=== PATIENT | male | born 1950 | race Caucasian/White ===

== ENCOUNTER 2019-03-25 10:02 | Outpatient (CLI) | payer MEDICARE, OTHER ==
--- NOTE | 2019-03-25 11:02 | ULT ---
RENAL ULTRASOUND WITH DOPPLER EVALUATION: HISTORY: Chronic renal disease. FINDINGS: Real-time imaging of the right and left kidneys was performed. This showed normal-sized kidneys. Th e right kidney measured 11.4 and the left 11.3 cm in size. There are no signs of cyst, mass, or obst ruction. There is a slightly trabeculated appearance to the bladder with bladder diverticulum noted. DOPPLER EVALUATION WITH SPECTRAL ANALYSIS: Right renal artery velocity measurements are 104 cm and the left are 172. Aortic velocities are 121 cm/s. The resistive index on the right is 0.66 and on the left 0.68. IMPRESSION: 1. Normal size and appearance to both kidneys. 2. Mildly elevated velocities of the left renal artery, but resistive index are within normal range. 3. Distended bladder. Bladder volume was 666 cc. There is bladder diverticulum noted. POS: [facility]
== END 2019-03-25 10:03 | disposition home or self-care (01) ==
LOC: BICULT 10:02
PROVIDERS: ATTEND Internal Medicine Nephrology
DX: I12.9 Hypertensive chronic kidney disease with stage 1 through stage 4 chronic kidney disease, or unspecified chronic kidney disease (principal); N18.2 Chronic kidney disease, stage 2 (mild); N32.89 Other specified disorders of bladder; N32.3 Diverticulum of bladder
CPT/HCPCS: 76700; 76770

== ENCOUNTER 2019-04-09 | Inpatient (IN) | payer MEDICARE, OTHER ==
[2019-04-09 00:33] LABS: #Eosinphils 0.3 thou/uL (0.0-0.7); #Lymphocytes 1.3 thou/uL (1.20-3.40); #Monocytes 0.5 thou/uL (0.11-0.59); #Neutrophils 4.1 thou/uL (1.40-6.50); %Basophils 0.5 % (0.0-1.0); %Eosinophils 4.3 % (0.0-10.0); %Lymphocytes 21.2 % (21.0-51.0); %Monocytes 8.4 % (0.0-10.0); %Neutrophils 65.6 % (42.0-75.0); Hemoglobin 12.6 g/dL (14.0-18.0); Mean Corpuscular HGB CONC 33.3 g/dL (32.0-36.0); Mean Corpuscular Hemoglobin 30.1 pg (27.0-31.0); Mean Corpuscular Volume 90.5 fL (78.0-98.0); Mean Platelet Volume 6.6 fL (7.4-10.4); Platelet Count 208 thou/uL (130-400); RBC Distribution Width 12.8 % (11.5-14.5); Red Blood Cell (RBC) Count 4.19 mill/uL (4.70-6.10); White Blood Cell (WBC) Count 6.3 thou/uL (4.8-10.8)
[2019-04-09 01:02] LABS: ALT (SGPT) 23 U/L (8-55); AST (SGOT) 21 U/L (5-34); Albumin 4.3 g/dL (3.4-4.8); Alkaline Phosphatase 59 U/L (40-150); Anion Gap 14 mmol/L (10-20); BUN (Urea Nitrogen) 21 mg/dL (8.4-25.7); Bilirubin, Total 0.3 mg/dL (0.2-1.2); Calc. Creatinine Clearance 0 mL/min (70-130); Calcium 9.3 mg/dL (7.8-10.44); Carbon Dioxide 23 mmol/L (23-31); Chloride 101 mmol/L (98-107); Estimated GFR-MDRD 66; Globulin 2.8 g/dL (2.4-3.5); Glucose 242 mg/dL (80-115); Lipase 32 U/L (8-78); Potassium 3.9 mmol/L (3.5-5.1); Protein, Total 7.1 g/dL (5.8-8.1); Sodium 134 mmol/L (136-145)
[2019-04-09 01:22] LABS: CKMB 3.9 ng/mL (0-6.6)
[2019-04-09] MEDS ORDERED: Enoxaparin Sodium 80 MG/0.8 ML SYRINGE ONE (01:40)
[2019-04-09] MEDS ORDERED: Nitroglycerin 2% Ointment 1 INCH/1 GM Packet ONE (01:40)
[2019-04-09 02:59] VITALS: BMI 26.4
[2019-04-09] MEDS ORDERED: Ondansetron ODT 4 MG TAB SL PRN (03:01)
[2019-04-09] MEDS ORDERED: Ondansetron PF 4 MG/2 ML Vial IVP PRN (03:01)
[2019-04-09 04:54] LABS: Troponin I 2.468 ng/mL (< 0.028)
[2019-04-09] MEDS ORDERED: Simvastatin 40 MG TAB PO SCH (05:45)
[2019-04-09 07:08] LABS: Troponin I 4.835 ng/mL (< 0.028)
[2019-04-09] MEDS ORDERED: Nitroglycerin 2% Ointment 1 INCH/1 GM Packet TOP SCH (08:00)
--- NOTE | 2019-04-09 08:07 | RAD ---
EXAM: Portable chest PROVIDED CLINICAL HISTORY: Chest pain COMPARISON: None FINDINGS: Cardiac and mediastinal silhouette is within normal limits. No focal consolidation, pleural fluid or pneumothorax evident. Vascular calcification is noted. IMPRESSION: No evidence for an acute cardiopulmonary process.
[2019-04-09] MEDS ORDERED: HumaLOG 300 UNITS/3 ML VIAL SC PRN ×2 (08:21)
[2019-04-09] MEDS ORDERED: Dextrose 50% Abboject 50 ML SYRINGE SLOW IVP PRN (08:21)
[2019-04-09] MEDS ORDERED: Dextrose 5% in Water 1,000 ML IV PRN (08:21)
[2019-04-09] MEDS ORDERED: hydrALAZINE 20 MG/ML VIAL SLOW IVP PRN (08:22)
[2019-04-09 08:50] LABS: Cardiac Risk 8.4 (Less than 4.5)
[2019-04-09] MEDS ORDERED: Aspirin 325 MG TAB PO SCH (09:00)
[2019-04-09] MEDS ORDERED: Non-Formulary Item 1 EACH (Insulin Detemir [Levemir] 25 UNIT) SQ SCH (09:00)
[2019-04-09] MEDS: Insulin Glargine 25 UNITS in Pre-Filled Syringe 1 EACH SC SCH ×2 (09:24→21:24)
--- NOTE | 2019-04-09 18:53 | PDOC.EVN ---
Event Note - Event Note Event Note: Pt seen and examined. care discussed w Ms carol Richard ,CHAIN MAKER HAND. Agree w cureent care Pt symptom free. Had long discussion about possible outcomes including Cath , stenting,CABG. He is agreeable to any recommendation as will be provided by cardiology NAD CTA B/L RRR Cont ASA,statin,Lovenox BID. NPO after [place] cardiology recs requested HD stable
[2019-04-09] MEDS ORDERED: Atorvastatin Calcium 40 MG TAB PO SCH (21:00)
[2019-04-09] MEDS: Enoxaparin Sodium 80 MG/0.8 ML SYRINGE SC SCH (21:24)
[2019-04-09 21:28] LABS: Hemoglobin 12.5 g/dL (14.0-18.0); Platelet Count 210 thou/uL (130-400)
[2019-04-10] MEDS: Enoxaparin Sodium 80 MG/0.8 ML SYRINGE SC SCH (08:59)
[2019-04-10] MEDS: NIFEdipine XL 30 MG TAB PO SCH (08:59)
[2019-04-10] MEDS ORDERED: Communication Order-Pharmacy FS SCH (09:00)
[2019-04-10] MEDS ORDERED: Carvedilol 3.125 MG TAB PO SCH (09:15)
--- NOTE | 2019-04-10 10:36 | CON ---
DATE OF CONSULTATION: HISTORY OF PRESENT ILLNESS: Saulo Vega is a 68-year-old white male, who was admitted with non STEMI. I did see him for evaluation in July 2013. He was being considered for parathyroidectomy for hypercalcemia. Twice previously in [place], he had undergone chest CT for calcium score, which was very abnormal. However, he never had a physiologic test. He then underwent Lexiscan Cardiolite testing for preop evaluation, which revealed a fixed proximal to mid inferior wall defect as well as ischemia in the distal inferior wall. This was present even on prone scan. Also, ejection fraction on echocardiogram at that time was 50% to 55% with mild mitral regurgitation, mild tricuspid regurgitation, and mild pulmonic insufficiency. It was recommended he undergo cardiac catheterization. He opted to see his 's dehydrator operator at [facility] in [place]. Apparently, he underwent catheterization there in 2012. He states that he was told that he had some blockages, but nothing further needed to be done. He was on atorvastatin for a period of time. However, it is unclear why he stopped taking that. He may have had some muscle pain, but he basically does not recall, he just stopped taking it. He also underwent repeat catheterization in 2016 and was told that he had some fairly significant disease. However, these locations were not ideal for stent placement and that his problems were not significant enough to undergo bypass. He did well until April 04, when he was digging up a tree stump and had some chest pressure that lasted for several minutes, associated with some shortness of breath. On April 08, he was carrying 20 pounds walking uphill and had the same type of chest pressure that was relieved with rest in 2 or 3 minutes. Then, later when he was driving home, he had again recurrence of the same discomfort. He went home, took three baby aspirins, but continued to have pain. Ultimately, 4 to 5 hours later, he called paramedics, and when he was given one sublingual nitroglycerin , his pain essentially resolved. Total duration of the pain was 6 or 7 hours. He has been pain-free since that time. PAST MEDICAL HISTORY: Diabetes, hypercholesterolemia, and hypertension. MEDICATIONS: 1. Nifedipine 30 mg daily. 2. Flomax 0.4 mg daily. 3. He does not take an aspirin routinely. He does not take a statin. ALLERGIES: 1. AMOXICILLIN. 2. SULFA. 3. LISINOPRIL. 4. METOPROLOL. HE STATES HE HAS TAKEN AMOXICILLIN SINCE WITHOUT PROBLEMS. HE WOULD HAVE FACIAL EDEMA WHEN HE WAS STARTED ON ANTIBIOTIC AND TAKING LISINOPRIL OR METOPROLOL AND SO HE HAS AVOIDED ALL OF THEM SINCE THAT TIME. SOCIAL HISTORY: He does not smoke. He has occasional beers. FAMILY HISTORY: Father had myocardial infarction. REVIEW OF SYSTEMS: A 12-point review of systems is otherwise unremarkable. PHYSICAL EXAMINATION: VITAL SIGNS: Blood pressure 187/87, pulse of 60. HEENT: PERRL. NECK: Supple. CHEST: Clear. CARDIAC: S1 and S2 normal without any S3, S4, or murmurs. Carotid upstrokes normal without bruits. Dorsalis pedis and posterior tibial pulses are intact. ABDOMEN: Normal bowel sounds without tenderness or organomegaly. EXTREMITIES: Revealed no clubbing, cyanosis, or edema. NEUROLOGICAL: Grossly intact. SKIN: Warm and dry. LABORATORY DATA: EKG reveals normal sinus rhythm with right bundle-branch block. Hemoglobin 12.6, hematocrit 37.9, white count 6300, and platelets 208,000. Sodium 134, potassium 3.6, chloride 101, carbon dioxide 23, BUN 21, creatinine 1.10, and glucose 242. BNP 53.2. Troponin I of 4.835. Cholesterol 176, triglycerides 334, LDL 88. TSH is normal. IMPRESSION: 1. Lgu-[id number] elevation myocardial infarction. 2. Known coronary artery disease from previous catheterizations. 3. Hypertension, poorly controlled. 4. Diabetes, poorly controlled. 5. Hypercholesterolemia, untreated. 6. Positive family history. 7. History of hyperparathyroidism in the past, however, apparently never required parathyroidectomy, and his calcium level at this time is 9.3. RECOMMENDATIONS: Mr. Vega will be placed on a statin. Low-dose carvedilol will be started for better blood pressure control. It is recommended he undergo cardiac catheterization. Risks of this were discussed with the patient and his including , myocardial infarction, stroke, transfusion, limb loss, renal loss, allergic reaction, vascular injury, requiring operation, etc. Risks of stent placement discussed including , myocardial infarction, emergent CABG, restenosis, stent thrombosis, vessel perforation, etc. He has no history of GI bleeding or stroke. He has no upcoming surgery except possible cataract and overall it is recommended that a drug-eluting stent be placed if required. Job ID: [id number] MTDD
[2019-04-10] MEDS: Insulin Glargine 25 UNITS in Pre-Filled Syringe 1 EACH SC SCH ×2 (13:12→20:52)
--- NOTE | 2019-04-10 13:16 | PDOC.PN ---
- Subjective Encounter Start Date: 04/10/19 Encounter Start Time: 11:25 Subjective: no chest pain or palp -: is amb in hallway - Objective MAR Reviewed: Yes Vital Signs & Weight: Vital Signs (12 hours) Temp Pulse Resp BP BP Pulse Ox 04/10/19 08:59 60 04/10/19 07:50 98.4 F 60 18 187/87 H 95 04/10/19 04:00 98.4 F 63 16 160/83 H 97 Weight Weight 114 lb I&O: 04/09/19 04/10/19 04/11/19 06:59 06:59 06:59 Intake Total 0 300 Output Total 750 Balance -750 300 Result Diagrams: 04/09/19 21:21 04/09/19 21:21 Additional Labs: Accuchecks 04/10/19 04/10/19 04/10/19 10:40 06:06 05:27 POC Glucose 160 H 87 67 L 04/09/19 04/09/19 20:19 16:52 POC Glucose 149 H 90 Phys Exam - Physical Examination HEENT: PERRLA, moist MMs Neck: no JVD, supple Respiratory: no wheezing, no rales Cardiovascular: RRR, no significant murmur Gastrointestinal: soft, non-tender, positive bowel sounds Musculoskeletal: no edema, pulses present Neurological: non-focal, moves all 4 limbs Psychiatric: normal affect, A&O x 3 Dx/Plan (1) NSTEMI (non-ST elevated myocardial infarction) Code(s): I21.4 - NON-ST ELEVATION (NSTEMI) MYOCARDIAL INFARCTION Status: Acute (2) CAD (coronary artery disease) Code(s): I25.10 - ATHSCL HEART DISEASE OF [place] CORONARY ARTERY W/O ANG PCTRS Status: Chronic Qualifiers: Coronary Disease-Associated Artery/Lesion type: [place] artery [place] vs. transplanted heart: [place] heart Associated angina: without angina Qualified Code(s): I25.10 - Atherosclerotic heart disease of [place] coronary artery without angina pectoris (3) HTN (hypertension) Code(s): I10 - ESSENTIAL (PRIMARY) HYPERTENSION Status: Chronic Qualifiers: Hypertension type: essential hypertension Qualified Code(s): I10 - Essential (primary) hypertension (4) Dyslipidemia Code(s): E78.5 - HYPERLIPIDEMIA, UNSPECIFIED Status: Chronic (5) BPH (benign prostatic hyperplasia) Code(s): N40.0 - BENIGN PROSTATIC HYPERPLASIA WITHOUT LOWER URINRY TRACT SYMP Status: Chronic Qualifiers: Lower urinary tract symptom presence: symptoms present (6) DM type 2 (diabetes mellitus, type 2) Status: Chronic Qualifiers: Diabetes mellitus mcfp insulin use: with truck terminal manager use Diabetes mellitus complication status: with other specified complication Qualified Code (s): E11.69 - Type 2 diabetes mellitus with other specified complication; 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 Review of Systems - Medications/Allergies Allergies/Adverse Reactions: Allergies Allergy/AdvReac Type Severity Reaction Status Date / Time amoxicillin Allergy Severe FACIAL Verified 08/22/14 09:39 SWELLING amlodipine Allergy angioedema Verified 04/09/19 03:29 lisinopril Allergy angioedema Verified 04/09/19 03:29 metoprolol Allergy Verified 04/09/19 03:29 Sulfa (Sulfonamide Allergy Verified 04/09/19 03:29 Antibiotics) Medications: Current Medications Carvedilol (Coreg) 3.125 mg PO BID-[facility] Dextrose/Water (Dextrose 50%) 25 gm SLOW IVP PRN PRN PRN Reason: Hypoglycemia Enoxaparin Sodium (Lovenox) 80 mg SC 0900,2100 [facility] Stop: 04/10/19 23:00 Last Admin: 04/10/19 08:59 Dose: 80 mg Glucagon (Glucagon) 1 mg IM PRN PRN PRN Reason: Hypoglycemia Hydralazine HCl (Apresoline) 10 mg SLOW IVP Q4H PRN PRN Reason: SBP > 180 and HR < 70 Dextrose/Water (D5w) 1,000 mls @ 0 mls/hr IV .Q0M PRN PRN Reason: Hypoglycemia Insulin Glargine 25 units/ (Miscellaneous Medication) 0.25 mls @ 0 mls/hr SC BID [facility] Stop: 04/11/19 00:01 Last Admin: 04/09/19 21:24 Dose: 0.25 mls Sodium Chloride (Normal Saline 0.9%) 1,000 mls @ 100 mls/hr IV .Q10H [facility] Insulin Human Lispro (Humalog) 0 units SC .MILD SLIDING SCALE PRN PRN Reason: Mild Correctional Scale Stop: 04/11/19 00:01 Insulin Human Lispro (Humalog) 0 units SC .BEDTIME SLIDING SC PRN PRN Reason: Bedtime Correctional Scale Stop: 04/11/19 00:01 Miscellaneous Information (Communication Order-Pharmacy) 0 each FS ONE [facility]LENE Stop: 04/11/19 12:00 Nifedipine (Procardia Xl) 30 mg PO DAILY [facility] Last Admin: 04/10/19 08:59 Dose: 30 mg Rosuvastatin Calcium (Crestor) 10 mg PO CHARLENE
--- NOTE | 2019-04-10 15:55 | HP ---
PRIMARY CARE PHYSICIAN: Reji Low MD CHIEF COMPLAINT: Chest pain. HISTORY OF PRESENT ILLNESS: Mr. Vega is a 68-year-old male, who reported to the emergency room last night after experiencing some left-sided chest pain while he was carrying something heavy up a hill. He reports that it is the sharp nature of the chest pain, a little bit better after he sat down, drank a beer, tried to relax, took an aspirin, but states the pain persisted. By the time his got home at 10 o'clock, he asked to be taken to the emergency room. EMS was called. By then, he had taken another aspirin and had another beer, trying to cool off. He does have a past medical history of coronary artery disease, hypertension, and diabetes type 2. The patient was given some nitroglycerin by EMS and reports that his pain after that improved. He reports the pain is substernal. He reports after that sharp chest pain resolved, reports that it was pressure-like, exacerbated by walking. He denied any diaphoresis or any nausea/vomiting. Does report some mild shortness of breath when the pain was at its worst. Initial workup in the ER showed the EKG with normal sinus rhythm, beats per minute 67, complete right bundle-branch block, ST segments normal, T-waves normal, LA interval at 186. He was given aspirin, Nitro-Bid transdermal, 500 mL of fluid, and 1 mg/kg Lovenox. His initial troponin was in the indeterminate range at 0.091, second troponin at 0400 hours this morning was 2.468, and third troponin at 0629 hours was 4.835. Triglycerides 334, total cholesterol 176. TSH is 1.34. Initial sodium 134 and glucose was 242. Other lab values were unremarkable. Hemoglobin was 12.6, hematocrit 37.9,. The patient was subsequently admitted to the telemetry unit for further management. REVIEW OF SYSTEMS: The patient reports chest pain, substernal. He reports some shortness of breath. He denied any diaphoresis or palpitations. He denied any dizziness. He reports that he had a similar episode of chest pain 3 days ago, but it resolved without any interventions, so he discounted it until he had the subsequent chest pain that brought him to the emergency room. All other systems are reviewed and are negative unless mentioned in the HPI. PAST MEDICAL HISTORY: Diabetes, type 2, insulin dependent; hyperlipidemia; high cholesterol; high triglycerides; hypertension. PAST SURGICAL HISTORY: The patient reports he has had 2 heart catheterizations , one in 2008, one in 2012. He denies any stent placement. He reports these both were done at [facility] in [place]. PSYCHIATRIC HISTORY: None. SOCIAL HISTORY: Denies any alcohol use or drug use. The patient has no smoking history. FAMILY HISTORY: The patient does report family history of both coronary artery disease and hypertension. KNOWN ALLERGIES: Amoxicillin and sulfa. CURRENT MEDICATIONS: 1. Cardura 1 mg p.o. daily. 2. Humalog 10 units subcu a.c. and at bedtime. 3. Levemir subcu b.i.d. 4. Procardia XL 30 mg p.o. daily. PHYSICAL EXAMINATION: VITAL SIGNS: Blood pressure is 138/67, pulse is 64, respirations are 15, temperature is 98.2, and O2 sats are 96% on room air. CONSTITUTIONAL: The patient appears in no distress, is nontoxic, is alert and oriented to person, place and time. HEENT: Head is atraumatic and normocephalic. Eyes; eyelids are normal to inspection, pupils are equally round and reactive to light. ENT, mucous membranes are moist. Mouth exam is normal. NECK: Normal range of motion. Trachea is midline. RESPIRATORY/CHEST: Breath sounds are clear. CARDIOVASCULAR: S1 and S2. HEART: Heart sounds are normal. Regular rate and rhythm. ABDOMEN: Nontender. Bowel sounds are heard. BACK: Normal inspection, normal range of motion. EXTREMITIES: Upper extremity inspection, normal range of motion, radial pulses are normal. Lower extremity, normal inspection, normal range of motion. Pedal pulses normal. NEUROLOGIC: The patient is oriented to person, place, and time. Speech is normal. PLAN/ASSESSMENT: 1. Chest pain with troponins elevated, likely eti-QG-gbzsacu elevation myocardial infarction. Cardiology has been consulted. Lovenox 1 mg/kg has been started. Aspirin 325 mg is given in the emergency room. Lipids have been checked. The patient is on a statin. 2. Diabetes, type 2. Home insulin has been restarted. We will add a sliding scale for coverage while hospitalized, a.c. and at bedtime Accu-Cheks. 3. Hypertension. Home medications have been restarted. We will trend p.r.n. medications needed as for coverage. 4. Hyperlipidemia. Statin has been restarted. 5. Gastrointestinal prophylaxis has been started. Lovenox has also been started. Case has been discussed with Dr. Buckner, who agrees with plan. Hospital course is dependent on clinical findings. Job ID: [id number] MTDD
[2019-04-10] MEDS: Carvedilol 3.125 MG TAB PO SCH (17:37)
[2019-04-10] MEDS: Rosuvastatin 10 MG TAB PO SCH (20:51)
[2019-04-10] MEDS ORDERED: Enoxaparin Sodium 60 MG/0.6 ML SYRINGE SC SCH (21:00)
[2019-04-11] MEDS: NIFEdipine XL 30 MG TAB PO SCH (05:37)
[2019-04-11] MEDS: Carvedilol 3.125 MG TAB PO SCH ×2 (05:40→16:37)
[2019-04-11] MEDS ORDERED: Sodium Chloride 0.9% 1,000 ML IV SCH ×2 (06:00→12:15)
[2019-04-11 07:51] LABS: Anion Gap 12 mmol/L (10-20); BUN (Urea Nitrogen) 16 mg/dL (8.4-25.7); Calc. Creatinine Clearance 67 mL/min (70-130); Calcium 9.6 mg/dL (7.8-10.44); Carbon Dioxide 25 mmol/L (23-31); Chloride 107 mmol/L (98-107); Estimated GFR-MDRD 65; Glucose 95 mg/dL (80-115); Potassium 3.9 mmol/L (3.5-5.1); Sodium 140 mmol/L (136-145)
[2019-04-11] MEDS ORDERED: Protamine Sulfate 50 MG/5 ML VIAL ONE (10:44)
[2019-04-11] MEDS ORDERED: Heparin 10,000 UNITS/1 ML VIAL ONE (10:44)
[2019-04-11] MEDS ORDERED: Lidocaine 1% (PF) 30 ML VIAL ONE (10:45)
[2019-04-11] MEDS ORDERED: Iopamidol 370 76% 50 ML VIAL FS ONE (11:14)
[2019-04-11] MEDS ORDERED: Iopamidol 370 76% 100 ML VIAL ONE (11:14)
[2019-04-11] MEDS ORDERED: Midazolam HCl 2 mg/2 ml Vial ONE (11:33)
[2019-04-11] MEDS ORDERED: Fentanyl 100 MCG/2 ML VIAL ONE (11:34)
[2019-04-11] MEDS ORDERED: Sodium Chloride 0.9% 200 ML IV PRN (12:14)
[2019-04-11] MEDS ORDERED: Acetaminophen/Codeine 30-300mg Tablet PO PRN ×2 (12:14)
[2019-04-11] MEDS ORDERED: Nitroglycerin 0.4 MG TAB (25 Tab Bottle) SL PRN (12:14)
--- NOTE | 2019-04-11 12:36 | PDOC.PN ---
- Subjective Encounter Start Date: 04/11/19 Encounter Start Time: 08:45 Subjective: no sob or chest pain -: at bedside - Objective MAR Reviewed: Yes Vital Signs & Weight: Vital Signs (12 hours) Temp Pulse Resp BP Pulse Ox 04/11/19 08:00 97.9 F 53 L 18 153/72 H 98 04/11/19 05:37 74 04/11/19 03:45 98.1 F 56 L 18 151/72 H 97 Weight Weight 170 lb I&O: 04/10/19 04/11/19 04/12/19 06:59 06:59 06:59 Intake Total 300 1420 10 Output Total 1000 Balance 300 420 10 Result Diagrams: 04/09/19 21:21 04/11/19 07:24 Additional Labs: Accuchecks 04/11/19 04/11/19 04/10/19 11:01 05:42 20:27 POC Glucose 100 117 H 118 H 04/10/19 16:36 POC Glucose 125 H Phys Exam - Physical Examination HEENT: PERRLA, moist MMs Neck: no JVD, supple Respiratory: no wheezing, no rales Cardiovascular: RRR, no significant murmur Gastrointestinal: soft, non-tender, positive bowel sounds Musculoskeletal: no edema, pulses present Neurological: non-focal, moves all 4 limbs Psychiatric: normal affect, A&O x 3 Dx/Plan (1) NSTEMI (non-ST elevated myocardial infarction) Code(s): I21.4 - NON-ST ELEVATION (NSTEMI) MYOCARDIAL INFARCTION Status: Acute (2) CAD (coronary artery disease) Code(s): I25.10 - ATHSCL HEART DISEASE OF [place] CORONARY ARTERY W/O ANG PCTRS Status: Chronic Qualifiers: Coronary Disease-Associated Artery/Lesion type: [place] artery [place] vs. transplanted heart: [place] heart Associated angina: without angina Qualified Code(s): I25.10 - Atherosclerotic heart disease of [place] coronary artery without angina pectoris (3) HTN (hypertension) Code(s): I10 - ESSENTIAL (PRIMARY) HYPERTENSION Status: Chronic Qualifiers: Hypertension type: essential hypertension Qualified Code(s): I10 - Essential (primary) hypertension (4) Dyslipidemia Code(s): E78.5 - HYPERLIPIDEMIA, UNSPECIFIED Status: Chronic (5) BPH (benign prostatic hyperplasia) Code(s): N40.0 - BENIGN PROSTATIC HYPERPLASIA WITHOUT LOWER URINRY TRACT SYMP Status: Chronic Qualifiers: Lower urinary tract symptom presence: symptoms present (6) DM type 2 (diabetes mellitus, type 2) Status: Chronic Qualifiers: 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 Review of Systems - Medications/Allergies Allergies/Adverse Reactions: Allergies Allergy/AdvReac Type Severity Reaction Status Date / Time amoxicillin Allergy Severe FACIAL Verified 08/22/14 09:39 SWELLING amlodipine Allergy angioedema Verified 04/09/19 03:29 lisinopril Allergy angioedema Verified 04/09/19 03:29 metoprolol Allergy Verified 04/09/19 03:29 Sulfa (Sulfonamide Allergy Verified 04/09/19 03:29 Antibiotics) Medications: Current Medications Acetaminophen/Codeine Phosphate (Tylenol #3) 1 tab PO Q4H PRN PRN Reason: Mild Pain (1-3) Acetaminophen/Codeine Phosphate (Tylenol #3) 2 tab PO Q4H PRN PRN Reason: Moderate Pain (4-6) Carvedilol (Coreg) 3.125 mg PO BID-[facility] Last Admin: 04/11/19 05:40 Dose: 3.125 mg Dextrose/Water (Dextrose 50%) 25 gm SLOW IVP PRN PRN PRN Reason: Hypoglycemia Glucagon (Glucagon) 1 mg IM PRN PRN PRN Reason: Hypoglycemia Hydralazine HCl (Apresoline) 10 mg SLOW IVP Q4H PRN PRN Reason: SBP > 180 and HR < 70 Dextrose/Water (D5w) 1,000 mls @ 0 mls/hr IV .Q0M PRN PRN Reason: Hypoglycemia Sodium Chloride (Normal Saline 0.9%) 200 mls @ 0 mls/hr IV ONE PRN PRN Reason: SBP < 90 Stop: 04/11/19 14:14 Sodium Chloride (Normal Saline 0.9%) 1,000 mls @ 125 mls/hr IV .Q8H [facility] Stop: 04/11/19 18:00 Nifedipine (Procardia Xl) 30 mg PO DAILY [facility] Last Admin: 04/11/19 05:37 Dose: 30 mg Nitroglycerin (Nitrostat) 0.4 mg SL Q5MIN PRN PRN Reason: Chest Pain Rosuvastatin Calcium (Crestor) 10 mg PO HS [facility] Last Admin: 04/10/19 20:51 Dose: 10 mg
[2019-04-11] MEDS ORDERED: Communication Order-Pharmacy FS ONE (20:59)
[2019-04-11] MEDS: Rosuvastatin 10 MG TAB PO SCH (21:19)
[2019-04-11 21:33] LABS: Platelet Count 221 thou/uL (130-400)
--- NOTE | 2019-04-12 01:00 | CON ---
DATE OF CONSULTATION: HISTORY OF PRESENT ILLNESS: This is a 68-year-old gentleman, who experienced chest tightness about a week ago when trying to dig up some dirt around a stump. He had tried to dig again after resolution of the symptoms and they recurred. He then did not have any recurrence until Thursday, 3 nights ago when he was exerting himself again and experienced chest discomfort. He was brought to the emergency room, where nitroglycerin relieved the pain and has not recurred, I do not see a troponin bump. The patient had been followed by Dr. Yeager for coronary artery disease and had a heart catheterization done at [facility] in the past without any intervention being done. He has cardiovascular risk factors of hypertension, insulin-dependent diabetes mellitus for the past 15 years, elevated lipid levels. He also has a history of hyperparathyroidism, neurogenic bladder, which requires self catheterizations at home. He also has a positive family history with his father having an IA in his 20s. Cardiac catheterization demonstrated a high-grade proximal LAD lesion, 40% left main mild, and obtuse marginal with a significant stenosis in its main branch with a smaller proximal branch having significant disease, but not bypassable. Distal circumflex had a significant lesion and appeared to be able to be grafted and then his right coronary had a high-grade lesion and a PDA that appeared to be bypassable. Left ventricular systolic function is normal. Cardiac echo showed normal left ventricular systolic function. PAST SURGICAL HISTORY: Negative. SOCIAL HISTORY: He is a nonsmoker. 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 He is a nonsmoker. MEDICATIONS: Prior to admission included: 1. Nifedipine 30 a day. 2. Humalog 10 a.c. and at bedtime. 3. Levemir 25 b.i.d. 4. Cardura 1 mg a day. ALLERGIES: HE HAS MULTIPLE ADVERSE MEDICATION REACTIONS INCLUDING TO METOPROLOL, LISINOPRIL, AMLODIPINE, AMOXICILLIN, AND SULFA. PHYSICAL EXAMINATION: VITAL SIGNS: Height 5 feet 9 inches, weight 170. NECK: No carotid bruits. LUNGS: Clear to auscultation. CARDIAC: Regular rate and rhythm. No murmurs. ABDOMEN: Slightly obese, nontender. No organomegaly or aneurysm. EXTREMITIES: He has palpable femoral and dorsalis pedis, posterior tibial pulses bilaterally as well as popliteal pulses. He has a good left radial pulse with a satisfactory Chad's test. He has no peripheral edema, although does admit to some swelling on occasion. 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 No dyspepsia or upper GI symptoms. No diarrhea or constipation. He does have difficulty emptying his bladder for which he does self-catheterizations and is followed by a urologist at the [facility]. He reports some peripheral edema in his calves. PLAN: At this time is for coronary bypass grafting to the LAD, OM, distal circ and PDA and informed consent has been obtained. Job ID: [id number]
[2019-04-12 06:41] LABS: Anion Gap 10 mmol/L (10-20); BUN (Urea Nitrogen) 15 mg/dL (8.4-25.7); Calc. Creatinine Clearance 70 mL/min (70-130); Calcium 9.7 mg/dL (7.8-10.44); Carbon Dioxide 24 mmol/L (23-31); Chloride 105 mmol/L (98-107); Estimated GFR-MDRD 65; Glucose 167 mg/dL (80-115); Potassium 3.8 mmol/L (3.5-5.1); Sodium 135 mmol/L (136-145)
[2019-04-12] MEDS: Carvedilol 3.125 MG TAB PO SCH (08:44)
--- NOTE | 2019-04-12 11:54 | PDOC.PN ---
- Subjective Encounter Start Date: 04/12/19 Encounter Start Time: 10:30 Subjective: is watching cabg video with -: no chest pain or palp - Objective MAR Reviewed: Yes Vital Signs & Weight: Vital Signs (12 hours) Temp Pulse Resp BP BP Pulse Ox 04/12/19 08:00 97.7 F 65 14 120/66 98 04/12/19 03:46 98.6 F 61 20 149/72 H 96 04/12/19 00:00 98.8 F 71 20 129/61 95 Weight Weight 178 lb 3.2 oz I&O: 04/11/19 04/12/19 04/13/19 06:59 06:59 06:59 Intake Total 1420 3230 Output Total 1000 1202 Balance 420 2027 Result Diagrams: 04/11/19 21:27 04/12/19 05:48 Additional Labs: Accuchecks 04/12/19 04/12/19 04/11/19 11:05 05:41 20:22 POC Glucose 240 H 179 H 154 H 04/11/19 16:26 POC Glucose 136 H Phys Exam - Physical Examination HEENT: PERRLA, moist MMs Neck: no JVD, supple Respiratory: no wheezing, no rales Cardiovascular: RRR, no significant murmur Gastrointestinal: soft, no distention, positive bowel sounds Musculoskeletal: no edema, pulses present Neurological: non-focal, moves all 4 limbs Psychiatric: normal affect, A&O x 3 Dx/Plan (1) NSTEMI (non-ST elevated myocardial infarction) Code(s): I21.4 - NON-ST ELEVATION (NSTEMI) MYOCARDIAL INFARCTION Status: Acute (2) CAD (coronary artery disease) Code(s): I25.10 - ATHSCL HEART DISEASE OF [place] CORONARY ARTERY W/O ANG PCTRS Status: Chronic Qualifiers: Coronary Disease-Associated Artery/Lesion type: [place] artery [place] vs. transplanted heart: [place] heart Associated angina: without angina Qualified Code(s): I25.10 - Atherosclerotic heart disease of [place] coronary artery without angina pectoris (3) HTN (hypertension) Code(s): I10 - ESSENTIAL (PRIMARY) HYPERTENSION Status: Chronic Qualifiers: Hypertension type: essential hypertension Qualified Code(s): I10 - Essential (primary) hypertension (4) Dyslipidemia Code(s): E78.5 - HYPERLIPIDEMIA, UNSPECIFIED Status: Chronic (5) BPH (benign prostatic hyperplasia) Code(s): N40.0 - BENIGN PROSTATIC HYPERPLASIA WITHOUT LOWER URINRY TRACT SYMP Status: Chronic Qualifiers: Lower urinary tract symptom presence: symptoms present (6) DM type 2 (diabetes mellitus, type 2) Status: Chronic Qualifiers: Diabetes mellitus director of corporate sponsorships insulin use: with chcf use Diabetes mellitus complication status: with other specified complication Qualified Code (s): E11.69 - Type 2 diabetes mellitus with other specified complication; Z79.4 - correction (current) use of insulin - Plan for cabg in am, has evaluated him -: continue asp, crestor, procardia, lantus -: hemostable -: is amb in [place] * . Review of Systems - Medications/Allergies Allergies/Adverse Reactions: Allergies Allergy/AdvReac Type Severity Reaction Status Date / Time amoxicillin Allergy Severe FACIAL Verified 08/22/14 09:39 SWELLING amlodipine Allergy angioedema Verified 04/09/19 03:29 lisinopril Allergy angioedema Verified 04/09/19 03:29 metoprolol Allergy Verified 04/09/19 03:29 Sulfa (Sulfonamide Allergy Verified 04/09/19 03:29 Antibiotics) Medications: Current Medications Carvedilol (Coreg) 3.125 mg PO BID-[facility] Stop: 04/12/19 12:00 Last Admin: 04/12/19 08:44 Dose: 3.125 mg
[2019-04-12] MEDS ORDERED: Dextrose 5% in Water 1,000 ML IV PRN (19:11)
[2019-04-12] MEDS ORDERED: Dextrose 50% Abboject 50 ML SYRINGE SLOW IVP PRN (19:13)
[2019-04-12] MEDS ORDERED: hydrALAZINE 20 MG/ML VIAL SLOW IVP PRN (19:13)
[2019-04-12] MEDS ORDERED: Acetaminophen/Codeine 30-300mg Tablet PO PRN ×2 (19:14)
[2019-04-12] MEDS ORDERED: Communication Order-Pharmacy FS SCH (19:15)
[2019-04-12] MEDS ORDERED: Carvedilol 3.125 MG TAB PO SCH (19:30)
[2019-04-12] MEDS ORDERED: Rosuvastatin 10 MG TAB PO SCH (21:00)
[2019-04-13] MEDS ORDERED: CEFAZOLIN 2 GM in Premix Bag 1 BAG IVPB SCH (02:30)
[2019-04-13] MEDS ORDERED: Midazolam HCl 5 mg/5 ml Vial ONE (06:28)
[2019-04-13] MEDS ORDERED: Fentanyl 250 MCG/5 ML VIAL ONE (06:28)
[2019-04-13] MEDS ORDERED: Albumin 5% 500 ML ONE (06:29)
[2019-04-13] MEDS ORDERED: Phenylephrine HCL 10 MG/ML VIAL ONE (06:36)
[2019-04-13] MEDS ORDERED: Heparin 10,000 UNITS/1 ML VIAL 30,000 UNITS in Sodium Chloride 0.9% 1,000 ML FS SCH (06:45)
[2019-04-13] MEDS ORDERED: Insulin Regular 300 UNITS/3 ML VIAL ONE (07:16)
[2019-04-13] MEDS ORDERED: Clindamycin/D5W 900 mg/50 ml Premix Bag ONE (07:55)
[2019-04-13] MEDS ORDERED: Carvedilol 3.125 MG TAB PO SCH (08:00)
[2019-04-13 11:16] LABS: Actual Bicarbonate (HCO3a) 19.4 mEq/L (22-28); CO2 Tension 29.9 mmHg (35.0-45.0); Calcium, Ionized 1.18 mmol/L (1.12-1.30); Carboxyhemoglobin (COHb) 0.6 gm% (0.0-3.0); Hemoglobin (Hb) 10.3 g/dL (14.0-18.0); O2 Tension (PaO2) 153.2 mmHg (> 70.0); Potassium - ABG Lab 3.86 mmol/L (3.70-5.30); Puncture Site ALINE; pH, Arterial 7.43 (7.35-7.45)
[2019-04-13 11:17] LABS: ALV-art Gradient 237.225 (0-20)
--- NOTE | 2019-04-13 11:28 | OP ---
DATE OF PROCEDURE: 04/13/2019 PREOPERATIVE DIAGNOSES: Coronary artery disease, status post unstable angina. PROCEDURES PERFORMED: Coronary artery bypass graft x4, good quality conduit with a left internal mammary artery to a 1.5 mm left anterior descending, saphenous vein to a 1.25 to 1.5 OM1 distally, saphenous vein to a 1.5 mm distal PDL, and saphenous vein graft to a 1.5 mm distal PDA. CORPORATE REAL ESTATE MANAGER: Korey. TRANSFUSION: None. DESCRIPTION OF PROCEDURE: After adequate anesthesia had been obtained, the patient was prepped and draped. Dr. Nair did an endovascular vein harvest of the left greater saphenous vein while I performed a median sternotomy entering the right pleura distally, which was closed later over a drain. Left internal mammary artery was harvested and was very nice quality vessel. It was passed posterior to the thymus gland through a hole in the pericardium. Following aortic and right atrial cannulation, the patient was placed on cardiopulmonary bypass. The aorta was quite close to the sternum posteriorly and at the end of the case, the saphenous vein grafts were fairly adjacent to the sternal edges. After inspection of the graftable vessels, the aorta was crossclamped and a liter of cold blood cardioplegia given through the aortic root and the 4 distal anastomosis were completed. Cross-clamp was replaced with a partial occluding clamp and two venous grafts were placed on the aortic root and marked with rings. Following this, the partial occluding clamp was removed and the PDA vein graft was attached in an end-to-side fashion to the posterolateral vein graft at the acute margin of the heart. Following this, the patient was weaned from cardiopulmonary bypass. Cannula was removed. Protamine was given systemically and the aortic cannulation site secured with a 4-0 Prolene suture. Mediastinal and right pleural drains were placed following which the sternum was reapproximated with #7 interrupted wire using vancomycin paste on the sternal edges, platelet rich blood and platelet poor plasma. As mentioned, the vein grafts on the aorta were quite close to the posterior sternal table, which would make reentry concerning and additionally, the target vessels were probably suboptimal for regrafting in the future. Job ID: [id number]
[2019-04-13] MEDS ORDERED: Bisacodyl 10 MG SUPP PR PRN (11:33)
[2019-04-13] MEDS ORDERED: Guaifenesin DM 100-10/5 ML UDCUP PO PRN (11:33)
[2019-04-13] MEDS ORDERED: Mag-Al 1200 mg/1200 mg/30 ML UDCUP PO PRN (11:33)
[2019-04-13] MEDS ORDERED: HYDROcodone/Acetaminophen 5/325 mg Tablet PO PRN ×2 (11:33)
[2019-04-13] MEDS ORDERED: Magnesium 2 GM/50 ML 2 GM in Premix Bag 1 BAG IVPB SCH (11:33)
[2019-04-13] MEDS ORDERED: Hetastarch 6% 500 ML 500 ML IVPB PRN (11:33)
[2019-04-13] MEDS ORDERED: Bisacodyl 5 MG TAB PO PRN (11:33)
[2019-04-13] MEDS ORDERED: Fentanyl 100 MCG/2 ML VIAL SLOW IVP PRN ×2 (11:33)
[2019-04-13] MEDS ORDERED: Nitroglycerin 50 MG/250 ML BOT 250 ML IVPB PRN (11:33)
[2019-04-13] MEDS ORDERED: Acetaminophen 325 MG TAB PO PRN (11:33)
[2019-04-13] MEDS ORDERED: Norepinephrine 8 MG in Sodium Chloride 0.9% 250 ML 242 ML IVPB PRN (11:33)
[2019-04-13] MEDS ORDERED: Promethazine HCl 25 MG/ML VIAL IM PRN (11:33)
[2019-04-13] MEDS ORDERED: DOPamine 400 MG/D5W 250 ML 250 ML IVPB PRN (11:33)
[2019-04-13] MEDS ORDERED: Post-Op Insulin Drip Protocol IVPB ONE (11:33)
[2019-04-13] MEDS ORDERED: hydrALAZINE 20 MG/ML VIAL SLOW IVP PRN (11:33)
[2019-04-13 11:50] LABS: INR-International Normal Ratio 1.4; PTT 32.5 SEC (22.9-36.1); Prothrombin Time 16.8 SEC (12.0-14.7)
[2019-04-13] MEDS ORDERED: HUMULIN R 100 UNITS in Sodium Chloride 0.9% 100 ML IVPB SCH ×2 (11:55→13:00)
[2019-04-13] MEDS ORDERED: Dextrose 5% in Water 1,000 ML IV PRN (11:55)
[2019-04-13] MEDS ORDERED: Dextrose 50% Abboject 50 ML SYRINGE SLOW IVP PRN (11:55)
[2019-04-13] MEDS: Morphine 2 MG/ML SYRINGE SLOW IVP PRN ×3 (11:57→14:04)
[2019-04-13 11:58] LABS: #Eosinphils 0.3 thou/uL (0.0-0.7); #Lymphocytes 1.4 thou/uL (1.20-3.40); #Monocytes 0.8 thou/uL (0.11-0.59); #Neutrophils 10.4 thou/uL (1.40-6.50); %Basophils 0.2 % (0.0-1.0); %Eosinophils 2.3 % (0.0-10.0); %Lymphocytes 10.9 % (21.0-51.0); %Monocytes 5.9 % (0.0-10.0); %Neutrophils 80.6 % (42.0-75.0); Mean Corpuscular HGB CONC 33.2 g/dL (32.0-36.0); Mean Corpuscular Hemoglobin 29.6 pg (27.0-31.0); Mean Corpuscular Volume 89.2 fL (78.0-98.0); Platelet Count 142 thou/uL (130-400); RBC Distribution Width 12.6 % (11.5-14.5); Red Blood Cell (RBC) Count 3.38 mill/uL (4.70-6.10); White Blood Cell (WBC) Count 12.9 thou/uL (4.8-10.8)
[2019-04-13] MEDS: Ketorolac Tromethamine 30 MG/ML VIAL IVP SCH ×3 (12:04→23:17)
[2019-04-13 12:05] LABS: Anion Gap 11 mmol/L (10-20); BUN (Urea Nitrogen) 18 mg/dL (8.4-25.7); Calc. Creatinine Clearance 81 mL/min (70-130); Calcium 8.6 mg/dL (7.8-10.44); Carbon Dioxide 22 mmol/L (23-31); Chloride 111 mmol/L (98-107); Estimated GFR-MDRD 81; Glucose 160 mg/dL (80-115); Sodium 140 mmol/L (136-145)
--- NOTE | 2019-04-13 12:36 | RAD ---
CHEST 1 VIEW: HISTORY: Post open heart surgery. COMPARISON: 04/09/2019. FINDINGS: The patient is intubated with endotracheal tube tip below the level of the clavicles in good position . Mediastinal drains are in good position. No pneumothorax. Central venous catheter tip is at the cavoatrial junction. Small right effusion with indwelling thoracostomy drain. IMPRESSION: Expected postoperative findings. POS: [facility]
--- NOTE | 2019-04-13 12:50 | PDOC.PN ---
- Subjective Encounter Start Date: 04/13/19 Encounter Start Time: 12:45 Subjective: is post op cabg in ICU -: on vent - Objective MAR Reviewed: Yes Vital Signs & Weight: Vital Signs (12 hours) Temp Pulse Resp BP BP Pulse Ox 04/13/19 10:59 53 L 153/66 H 04/13/19 03:57 99.1 F 56 L 18 159/74 H 96 Weight Weight 169 lb 11.2 oz I&O: 04/12/19 04/13/19 04/14/19 06:59 06:59 06:59 Intake Total 3230 340 Output Total 1202 1600 Balance 2027 -1259 Result Diagrams: 04/13/19 11:07 04/13/19 11:07 Additional Labs: Accuchecks 04/13/19 04/13/19 04/13/19 10:20 09:33 09:04 POC Glucose 143 H 111 H 131 H 04/13/19 04/13/19 04/13/19 08:36 08:00 05:31 POC Glucose 154 H 148 H 181 H 04/12/19 04/12/19 20:28 16:09 POC Glucose 158 H 168 H Phys Exam - Physical Examination HEENT: PERRLA, sclera anicteric Neck: no JVD, supple Respiratory: no wheezing rales+, chest tube+ Cardiovascular: RRR, no significant murmur Gastrointestinal: soft, non-tender, positive bowel sounds Musculoskeletal: pulses present Neurological: non-focal Dx/Plan (1) NSTEMI (non-ST elevated myocardial infarction) Code(s): I21.4 - NON-ST ELEVATION (NSTEMI) MYOCARDIAL INFARCTION Status: Acute (2) CAD (coronary artery disease) Code(s): I25.10 - ATHSCL HEART DISEASE OF [place] CORONARY ARTERY W/O ANG PCTRS Status: Chronic Qualifiers: Coronary Disease-Associated Artery/Lesion type: [place] artery [place] vs. transplanted heart: [place] heart Associated angina: without angina Qualified Code(s): I25.10 - Atherosclerotic heart disease of [place] coronary artery without angina pectoris Comment: s/p cabg x4 04/13/2019 (3) HTN (hypertension) Code(s): I10 - ESSENTIAL (PRIMARY) HYPERTENSION Status: Chronic Qualifiers: Hypertension type: essential hypertension Qualified Code(s): I10 - Essential (primary) hypertension (4) Dyslipidemia Code(s): E78.5 - HYPERLIPIDEMIA, UNSPECIFIED Status: Chronic (5) BPH (benign prostatic hyperplasia) Code(s): N40.0 - BENIGN PROSTATIC HYPERPLASIA WITHOUT LOWER URINRY TRACT SYMP Status: Chronic Qualifiers: Lower urinary tract symptom presence: symptoms present (6) DM type 2 (diabetes mellitus, type 2) Status: Chronic Qualifiers: Diabetes mellitus pick up truck driver insulin use: with pick up truck driver use Diabetes mellitus complication status: with other specified complication Qualified Code (s): E11.69 - Type 2 diabetes mellitus with other specified complication; Z79.4 - hand flatwork finisher (current) use of insulin - Plan post op just arrived in ICU -: will f/u -: currently hemostable -: asp, nebs, weaning per protocol -: insulin drip per protocol * . Review of Systems - Medications/Allergies Allergies/Adverse Reactions: Allergies Allergy/AdvReac Type Severity Reaction Status Date / Time amoxicillin Allergy Severe FACIAL Verified 08/22/14 09:39 SWELLING amlodipine Allergy angioedema Verified 04/09/19 03:29 lisinopril Allergy angioedema Verified 04/09/19 03:29 metoprolol Allergy Verified 04/09/19 03:29 Sulfa (Sulfonamide Allergy Verified 04/09/19 03:29 Antibiotics) Medications: Current Medications Acetaminophen (Tylenol) 650 mg PO Q6H PRN PRN Reason: Headache/Fever Or Mild Pain Hydrocodone Bitart/Acetaminophen ([place] 5/325) 1 tab PO Q4H PRN PRN Reason: Moderate Pain (4-6) Hydrocodone Bitart/Acetaminophen ([place] 5/325) 2 tab PO Q4H PRN PRN Reason: Severe Pain (7-10) Al Hydroxide/Mg Hydroxide (Maalox) 30 ml PO Q4H PRN PRN Reason: Indigestion Albumin Human (Albumin 5%) 12.5 gm IVPB Q6H PRN PRN Reason: To Maintain SBP> 90 mmHG Stop: 04/14/19 11:34 Albumin Human (Albumin 5%) 25 gm IVPB Q6H PRN PRN Reason: To Maintain SBP > 90 mmHG Stop: 04/14/19 11:34 Albuterol/Ipratropium (Duoneb) 3 ml NEB [id number] PRN PRN Reason: SHORTNESS OF BREATH Aspirin (Aspirin) 325 mg PO DAILY [facility] Bisacodyl (Dulcolax) 10 mg PO Q12H PRN PRN Reason: Constipation Bisacodyl (Dulcolax) 10 mg [place] Q12H PRN PRN Reason: Constipation Dextrose/Water (Dextrose 50%) 25 gm SLOW IVP PRN PRN PRN Reason: PER HYPOGLYCEMIC PROTOCOL Doxazosin Mesylate (Cardura) 1 mg PO DAILY [facility] Famotidine (Pepcid) 20 mg SLOW IVP Q12HR [facility] Fentanyl (Sublimaze) 25 mcg SLOW IVP Q2H PRN PRN Reason: Moderate Pain (4-6) Stop: 04/15/19 10:39 Fentanyl (Sublimaze) 50 mcg SLOW IVP Q2H PRN PRN Reason: Severe Pain (7-10) Stop: 04/15/19 10:39 Glucagon (Glucagon) 1 mg SC PRN PRN PRN Reason: PER HYPOGLYCEMIC PROTOCOL Guaifenesin/Dextromethorphan (Robitussin Dm) 15 ml PO Q4H PRN PRN Reason: Cough Hydralazine HCl (Apresoline) 10 mg SLOW IVP Q6H PRN PRN Reason: To Maintain SBP< 140mmHG Clindamycin Phosphate/Dextrose (900 mg/ Device) 50 mls @ 100 mls/hr IVPB 0200, 0800,1400,2000 [facility] Stop: 04/14/19 08:29 Dopamine HCl/Dextrose (Dopamine 400 Mg/D5w 250 Ml) 250 mls @ 0 mls/hr IVPB PRN PRN; Protocol PRN Reason: To maintain SBP > 90 mmHG Hetastarch/Sodium Chloride (Hespan) 500 mls @ 0 mls/hr IVPB PRN PRN PRN Reason: To Maintain SBP > 90mmHg Stop: 04/14/19 10:39 Norepinephrine Bitartrate 8 mg (/ Sodium Chloride) 250 mls @ 0 mls/hr IVPB PRN PRN; Protocol PRN Reason: To maintain SBP > 90 mmHG Magnesium Sulfate 2 gm/ Device 50 mls @ 50 mls/hr IVPB NOW [facility] Stop: 04/13/19 13:33 Nitroglycerin/Dextrose (Nitroglycerin 50 Mg/250 Ml Bot) 250 mls @ 0 mls/hr IVPB PRN PRN; Protocol PRN Reason: To Maintain SBP< 140mmHG Last Admin: 04/13/19 11:57 Dose: 250 mls Sodium Chloride (Normal Saline 0.9%) 1,000 mls @ 100 mls/hr IV .Q10H [facility] Vancomycin HCl 1 gm/ Device 200 mls @ 200 mls/hr IVPB 1000,2200 [facility] Stop: 04/14/19 10:59 Insulin Human Regular 100 (units/ Sodium Chloride) 101 mls @ 0 mls/hr IVPB INF [facility]; Protocol Dextrose/Water (D5w) 1,000 mls @ 0 mls/hr IV INF PRN PRN Reason: PRN HYPOGLYCEMIC PROTOCOL Insulin Human Regular 100 (units/ Sodium Chloride) 101 mls @ 0 mls/hr IVPB INF [facility] Insulin Glargine (Lantus) 0 units SC ONE PRN PRN Reason: PER OPEN HEART ORDERS Stop: 04/13/19 23:00 Insulin Human Regular (Humulin R) 0 units SC Q4H PRN; Protocol PRN Reason: POST OP SLIDING SCALE Ketorolac Tromethamine (Toradol) 15 mg IVP Q6HR [facility] Stop: 04/16/19 12:01 Last Admin: 04/13/19 12:04 Dose: 15 mg Morphine Sulfate (Morphine) 2 mg SLOW IVP Q15MIN PRN PRN Reason: Severe Pain (7-10) Last Admin: 04/13/19 11:57 Dose: 2 mg Ondansetron HCl (Zofran) 4 mg IVP Q6H PRN PRN Reason: Nausea/Vomiting Potassium Chloride (Kcl) 20 meq IVPB PRN PRN PRN Reason: K level </= 4.0 Promethazine HCl (Phenergan) 6.25 mg IM Q4H PRN PRN Reason: Nausea/Vomiting
[2019-04-13] MEDS: Sodium Chloride 0.9% 1,000 ML IV SCH ×2 (13:24→21:03)
[2019-04-13] MEDS: Clindamycin/D5W 900 MG in Premix Bag 1 BAG IVPB SCH ×2 (13:33→20:30)
[2019-04-13] MEDS: Potassium Chloride 20 MEQ/100 ML PREMIX BAG IVPB PRN ×2 (15:00→17:51)
[2019-04-13 16:11] LABS: Actual Bicarbonate (HCO3a) 19.8 mEq/L (22-28); Base Excess (BEa) -4.3 mEq/L (-2.0 to +3.0); Calcium, Ionized 1.15 mmol/L (1.12-1.30); Carboxyhemoglobin (COHb) 1.2 gm% (0.0-3.0); Hemoglobin (Hb) 11.5 g/dL (14.0-18.0); O2 Tension (PaO2) 90.3 mmHg (> 70.0); Potassium - ABG Lab 3.47 mmol/L (3.70-5.30)
[2019-04-13 16:23] LABS: Puncture Site LINE
[2019-04-13 16:47] LABS: Hemoglobin 11.1 g/dL (14.0-18.0)
[2019-04-13] MEDS: Ondansetron PF 4 MG/2 ML Vial IVP PRN ×2 (17:51→22:55)
[2019-04-13] MEDS: Famotidine/PF 20 mg/2ml Vial SLOW IVP SCH (20:30)
[2019-04-13] MEDS: Vancomycin HCl 1 GM in Premix Bag 1 BAG IVPB SCH (22:55)
[2019-04-14 03:52] LABS: #Lymphocytes 1.4 thou/uL (1.20-3.40); #Neutrophils 9.6 thou/uL (1.40-6.50); %Eosinophils 0.2 % (0.0-10.0); %Lymphocytes 11.7 % (21.0-51.0); %Monocytes 8.3 % (0.0-10.0); %Neutrophils 79.8 % (42.0-75.0); Hemoglobin 10.1 g/dL (14.0-18.0); Mean Corpuscular HGB CONC 33.1 g/dL (32.0-36.0); Mean Corpuscular Hemoglobin 30.3 pg (27.0-31.0); Mean Corpuscular Volume 91.5 fL (78.0-98.0); Mean Platelet Volume 7.1 fL (7.4-10.4); Platelet Count 145 thou/uL (130-400); RBC Distribution Width 12.9 % (11.5-14.5); Red Blood Cell (RBC) Count 3.34 mill/uL (4.70-6.10)
[2019-04-14] MEDS: Clindamycin/D5W 900 MG in Premix Bag 1 BAG IVPB SCH ×2 (03:53→08:06)
[2019-04-14 04:12] LABS: Anion Gap 11 mmol/L (10-20); BUN (Urea Nitrogen) 18 mg/dL (8.4-25.7); Calc. Creatinine Clearance 80 mL/min (70-130); Calcium 8.7 mg/dL (7.8-10.44); Carbon Dioxide 22 mmol/L (23-31); Chloride 112 mmol/L (98-107); Estimated GFR-MDRD 79; Glucose 117 mg/dL (80-115); Potassium 4.1 mmol/L (3.5-5.1); Sodium 141 mmol/L (136-145)
[2019-04-14] MEDS: Ondansetron PF 4 MG/2 ML Vial IVP PRN (05:40)
[2019-04-14] MEDS: Ketorolac Tromethamine 30 MG/ML VIAL IVP SCH ×3 (05:40→18:37)
--- NOTE | 2019-04-14 07:40 | RAD ---
EXAM: Single view of the chest HISTORY: Status post open heart surgery COMPARISON: 04/13/2019 FINDINGS: Single view of the chest shows an enlarged but stable cardiomediastinal silhouette. The pa tient is status post CABG. The endotracheal tube has been removed. The central venous catheter and chest tubes are unchanged in position. There is no evidence of consolidation, mass, or pleural effus ion. The bones are unremarkable. IMPRESSION: Stable exam status post extubation.
[2019-04-14] MEDS: Insulin Regular 300 UNITS/3 ML VIAL SC PRN ×4 (08:55→20:38)
[2019-04-14] MEDS: Aspirin 325 MG TAB PO SCH (08:58)
[2019-04-14] MEDS: Famotidine/PF 20 mg/2ml Vial SLOW IVP SCH ×2 (08:58→20:40)
[2019-04-14] MEDS: Doxazosin Mesylate 1 MG TAB PO SCH (09:21)
[2019-04-14] MEDS: Vancomycin HCl 1 GM in Premix Bag 1 BAG IVPB SCH (10:10)
--- NOTE | 2019-04-14 12:51 | PDOC.PN ---
- Subjective Encounter Start Date: 04/14/19 Encounter Start Time: 12:50 Mr. Vega was seen today in follow-up of ACS and post CABG. He says he is feeling better now. He says he had quite a bit of pain in his right chest, presumably due to the chest tube. Now that he is sitting up, he feels much better. - Objective MAR Reviewed: Yes Vital Signs & Weight: Vital Signs (12 hours) Temp Pulse Ox 04/14/19 12:00 98.2 F 04/14/19 08:00 96 Weight Weight 1.82 oz Most Recent Monitor Data Heart Rate from ECG 59 NIBP 123/62 NIBP BP-Mean 79 Respiration from ECG 20 SpO2 97 I&O: 04/13/19 04/14/19 04/15/19 06:59 06:59 06:59 Intake Total 340 2618 370 Output Total 1600 3310 130 Balance -1260 692 240 Result Diagrams: 04/14/19 03:35 04/14/19 03:35 Additional Labs: Accuchecks 04/14/19 04/14/19 04/14/19 11:47 08:07 06:08 POC Glucose 195 H 129 H 102 04/14/19 04/14/19 04/14/19 05:06 03:46 02:52 POC Glucose 106 117 H 132 H 04/14/19 04/14/19 04/13/19 01:19 00:22 22:28 POC Glucose 180 H 167 H 115 H 04/13/19 04/13/19 04/13/19 21:43 20:34 18:54 POC Glucose 92 74 114 H 04/13/19 04/13/19 04/13/19 18:04 16:04 15:06 POC Glucose 118 H 188 H 212 H Phys Exam - Physical Examination HEENT: PERRLA Respiratory: no wheezing, no rales, no rhonchi, clear to auscultation bilateral Cardiovascular: RRR, no significant murmur, no rub Gastrointestinal: soft, non-tender, no distention, positive bowel sounds Musculoskeletal: no edema Dx/Plan (1) NSTEMI (non-ST elevated myocardial infarction) Code(s): I21.4 - NON-ST ELEVATION (NSTEMI) MYOCARDIAL INFARCTION Status: Acute (2) S/P CABG x 4 Status: Acute (3) CAD (coronary artery disease) Code(s): I25.10 - ATHSCL HEART DISEASE OF [place] CORONARY ARTERY W/O ANG PCTRS Status: Chronic Qualifiers: Coronary Disease-Associated Artery/Lesion type: [place] artery [place] vs. transplanted heart: [place] heart Associated angina: without angina Qualified Code(s): I25.10 - Atherosclerotic heart disease of [place] coronary artery without angina pectoris Comment: s/p cabg x4 04/13/2019 (4) DM type 2 (diabetes mellitus, type 2) Status: Chronic Qualifiers: Diabetes mellitus intermediate manager insulin use: with intermediate manager use Diabetes mellitus complication status: with other specified complication Qualified Code (s): E11.69 - Type 2 diabetes mellitus with other specified complication; Z79.4 - termite treater (current) use of insulin (5) Dyslipidemia Code(s): E78.5 - HYPERLIPIDEMIA, UNSPECIFIED Status: Chronic (6) HTN (hypertension) Code(s): I10 - ESSENTIAL (PRIMARY) HYPERTENSION Status: Chronic Qualifiers: Hypertension type: essential hypertension Qualified Code(s): I10 - Essential (primary) hypertension - Plan * NSTEMI- s/p CABG- he is hemodynamically stable * HTN- blood pressure is stable * DM-continue post CABG diabetes protocol * Encourage incentive spirometry * Continue as per CV surgery.
--- NOTE | 2019-04-14 15:46 | CON ---
DATE OF CONSULTATION: 04/14/2019 REASON FOR CONSULTATION: Acute hypoxic respiratory failure, status post four- vessel CABG. HISTORY OF PRESENT ILLNESS: This is a 68-year-old male, who reportedly experienced chest tightness about a week ago when doing some work around the house. He had resolution of symptoms until Thursday, which was three nights ago, when he started to experience some shortness of breath and chest pain while exerting himself. The patient was brought to the Emergency Department, where he received nitroglycerin, which did relieve the pain and the pain did not recur. The patient did have a bump in troponins. Dr. Yeager was consulted. The patient reportedly has a history of coronary artery disease and had a heart catheterization done at [facility] in the past, which did not require any interventions at that time. His cardiovascular risk factors include hypertension, insulin-dependent diabetes mellitus for 15 years, and hyperlipidemia. The patient has family history pertinent for coronary artery disease. He states his father had an PA in his 20s. Cardiac catheterization was performed and the patient was noted to have severe four-vessel disease. The patient underwent a four-vessel CABG and was taken to the ICU for routine recovery. The patient is off mechanical ventilation and doing very well. He is saturating well on room air and not complaining of any respiratory distress or discomfort. Patient denies chest pain. He states that he is having some discomfort from the chest tube, but otherwise he is doing well, and the pain is better controlled when sitting up in a chair. ROS: A 12 point review of systems was performed. All were negative, except as listed above. PAST MEDICAL HISTORY: 1. Diabetes mellitus type 2, insulin dependent. 2. Hyperlipidemia. 3. Hypertension. 4. Coronary artery disease. PAST SURGICAL HISTORY: The patient has had two prior heart catheterizations, one in 2008 and one in 2012. He denies any stent placement at those times. SOCIAL HISTORY: The patient denies any alcohol use or drug use. He has no known reported smoking history. FAMILY HISTORY: The patient did report a family history of father having an PA in his 20s. ALLERGIES: AMOXICILLIN, AMLODIPINE, LISINOPRIL, METOPROLOL, AND SULFA. PHYSICAL EXAMINATION: VITAL SIGNS: Blood pressure 123/62, respiratory rate 20, oxygen saturation 97% on room air, heart rate 59, and temperature 98.2 degrees Fahrenheit. GENERAL: The patient is alert and oriented x3, in no acute distress. HEENT: Pupils equally round and reactive to light. CARDIAC: Regular rate and rhythm. No appreciable murmurs. RESPIRATORY: No acute respiratory distress, not requiring supplemental oxygen. LUNGS: Clear to auscultation. NEURO: GCS 15, no focal deficit. EXTREMITIES: No edema. The patient's legs currently wrapped in ESTEBAN bandages. ABDOMEN: Soft and nontender. Bowel sounds present. The patient does have the chest tube in place in the substernal area which is drain has drained approximately 400 mL since the operation. SKIN: No rashes or lesions. LABORATORY DATA: CBC reveals white blood cell count 12, hemoglobin 10.1, hematocrit 30.6, and platelets are 145. BMP reveals sodium 141, potassium 4.1, chloride 112, bicarb 22, BUN 18, creatinine 0.94, and glucose of 117. IMAGING: Most recent chest x-ray showed stable exam post extubation with enlarged, but stable cardiomediastinal silhouette and post CABG changes. No evidence of consolidation, mass, or pleural effusion. Echocardiogram showed overall left ventricular function mildly depressed with ejection fraction 45% to 50% and mild tricuspid regurgitation. There is also a moderate mitral regurgitation. ASSESSMENT: 1. Coronary artery disease status post four-vessel CABG. 2. Insulin-dependent diabetes mellitus type 2. 3. Hypertension. 4. Hyperlipidemia. PLAN: The patient is currently stable from a Pulmonary standpoint. He is doing very well status post four-vessel CABG. He is up to chair this morning. Continue physical therapy to encourage accelerated recovery. We will continue to monitor the chest tube output in hopes of removing that as soon as possible. Plan to discontinue the [place] to reduce potential for UTI. We will continue to follow the patient while in the ICU. Dr. Stein was present for the evaluation and is agreeable with the above stated plan. We will continue to follow patient while in ICU. 70 minutes have been devoted to this patient in various activities. I personally reviewed all imaging studies and laboratory data noted within this document. For fifty percent of this time, I was interacting with the patient at the bedside or coordinating care with the care team. For the remainder of the time I was immediately available to the patient in the hospital unit. Job ID: [id number] [facility]
[2019-04-14] MEDS: Rosuvastatin 10 MG TAB PO SCH (20:40)
[2019-04-15] MEDS: Ketorolac Tromethamine 30 MG/ML VIAL IVP SCH ×2 (00:23→05:25)
[2019-04-15] MEDS: Insulin Regular 300 UNITS/3 ML VIAL SC PRN ×6 (00:25→21:17)
[2019-04-15 04:56] LABS: #Basophils 0.1 thou/uL (0.0-0.2); #Eosinphils 0.3 thou/uL (0.0-0.7); #Neutrophils 7.1 thou/uL (1.40-6.50); %Basophils 0.5 % (0.0-1.0); %Eosinophils 2.7 % (0.0-10.0); %Monocytes 9.6 % (0.0-10.0); %Neutrophils 68.2 % (42.0-75.0); Hemoglobin 9.6 g/dL (14.0-18.0); Mean Corpuscular Hemoglobin 30.2 pg (27.0-31.0); Mean Corpuscular Volume 91.6 fL (78.0-98.0); Mean Platelet Volume 7.5 fL (7.4-10.4); Platelet Count 150 thou/uL (130-400); RBC Distribution Width 13.1 % (11.5-14.5); Red Blood Cell (RBC) Count 3.19 mill/uL (4.70-6.10); White Blood Cell (WBC) Count 10.4 thou/uL (4.8-10.8)
[2019-04-15 05:11] LABS: Anion Gap 12 mmol/L (10-20); BUN (Urea Nitrogen) 27 mg/dL (8.4-25.7); Calc. Creatinine Clearance 44 mL/min (70-130); Calcium 8.7 mg/dL (7.8-10.44); Carbon Dioxide 21 mmol/L (23-31); Chloride 107 mmol/L (98-107); Estimated GFR-MDRD 56; Glucose 118 mg/dL (80-115); Potassium 4.1 mmol/L (3.5-5.1); Sodium 136 mmol/L (136-145)
--- NOTE | 2019-04-15 08:04 | RAD ---
XR Chest 1 View Portable HISTORY: Postop open heart surgery COMPARISON: Previous day FINDINGS: Changes of median sternotomy are again seen. The heart size is stable. Right subclavian pankaj tral line remains in place. Mediastinal drain and right chest tube have been removed in the interim. There is mild density in the right lower lung. The left osteopenic angle has been excluded f rom the film. No pneumothoraces or large effusions are seen.
--- NOTE | 2019-04-15 09:20 | PDOC.PN ---
- Subjective Encounter Start Date: 04/15/19 Encounter Start Time: 09:18 Mr. Vega was seen today in follow-up of post CABG. He denies any chest pain. He is breathing better. - Objective MAR Reviewed: Yes Vital Signs & Weight: Vital Signs (12 hours) Pulse 04/15/19 05:25 61 Weight Weight 127 lb 10.362 oz Most Recent Monitor Data Heart Rate from ECG 68 NIBP 129/54 NIBP BP-Mean 74 Respiration from ECG 22 SpO2 94 I&O: 04/14/19 04/15/19 04/16/19 06:59 06:59 06:59 Intake Total 2618 1040 Output Total 3310 785 Balance -692 255 Result Diagrams: 04/15/19 04:30 04/15/19 04:30 Additional Labs: Accuchecks 04/15/19 04/15/19 04/15/19 08:28 04:31 00:26 POC Glucose 137 H 123 H 134 H 04/14/19 04/14/19 04/14/19 20:33 16:43 11:47 POC Glucose 191 H 140 H 195 H 04/14/19 08:07 POC Glucose 129 H Phys Exam - Physical Examination HEENT: PERRLA Respiratory: no wheezing, no rales, no rhonchi, clear to auscultation bilateral Cardiovascular: RRR, no significant murmur, no rub Gastrointestinal: soft, non-tender, no distention, positive bowel sounds Musculoskeletal: no edema, pulses present Dx/Plan (1) NSTEMI (non-ST elevated myocardial infarction) Code(s): I21.4 - NON-ST ELEVATION (NSTEMI) MYOCARDIAL INFARCTION Status: Acute (2) S/P CABG x 4 Status: Acute (3) CAD (coronary artery disease) Code(s): I25.10 - ATHSCL HEART DISEASE OF [place] CORONARY ARTERY W/O ANG PCTRS Status: Chronic Qualifiers: Coronary Disease-Associated Artery/Lesion type: [place] artery [place] vs. transplanted heart: [place] heart Associated angina: without angina Qualified Code(s): I25.10 - Atherosclerotic heart disease of [place] coronary artery without angina pectoris Comment: s/p cabg x4 04/13/2019 (4) DM type 2 (diabetes mellitus, type 2) Status: Chronic Qualifiers: Diabetes mellitus fci insulin use: with terminal block assembler use Diabetes mellitus complication status: with other specified complication Qualified Code (s): E11.69 - Type 2 diabetes mellitus with other specified complication; Z79.4 - termite control representative (current) use of insulin (5) Dyslipidemia Code(s): E78.5 - HYPERLIPIDEMIA, UNSPECIFIED Status: Chronic (6) HTN (hypertension) Code(s): I10 - ESSENTIAL (PRIMARY) HYPERTENSION Status: Chronic Qualifiers: Hypertension type: essential hypertension Qualified Code(s): I10 - Essential (primary) hypertension - Plan * NSTEMI- he is s/p CABGand clinically stable * HTN- blood pressure is stable * DM- blood gucose is stable * Continue cardiac rehab and encourage incentive spirometry * Stable to transfer out of the ICU.
[2019-04-15] MEDS: Aspirin 325 MG TAB PO SCH (09:29)
[2019-04-15] MEDS: Doxazosin Mesylate 1 MG TAB PO SCH (09:29)
[2019-04-15] MEDS: Famotidine/PF 20 mg/2ml Vial SLOW IVP SCH (09:29)
[2019-04-15] MEDS ORDERED: Fentanyl 100 MCG/2 ML VIAL SLOW IVP PRN (11:54)
[2019-04-15] MEDS ORDERED: Mag-Al 1200 mg/1200 mg/30 ML UDCUP PO PRN (11:54)
[2019-04-15] MEDS ORDERED: HYDROcodone/Acetaminophen 5/325 mg Tablet PO PRN (11:54)
[2019-04-15] MEDS ORDERED: Acetaminophen 325 MG TAB PO PRN (11:54)
[2019-04-15] MEDS ORDERED: Nitroglycerin 0.4 MG TAB (25 Tab Bottle) SL PRN (11:54)
[2019-04-15] MEDS ORDERED: Zolpidem Tartrate 5 MG TAB PO PRN (11:54)
[2019-04-15] MEDS ORDERED: Guaifenesin DM 100-10/5 ML UDCUP PO PRN (11:54)
[2019-04-15] MEDS ORDERED: Milk Of Magnesia 30 ML UDCUP PO PRN (11:54)
[2019-04-15] MEDS ORDERED: Mineral Oil ENEMA PR PRN (11:54)
[2019-04-15] MEDS ORDERED: Ondansetron PF 4 MG/2 ML Vial IVP PRN (11:54)
[2019-04-15] MEDS ORDERED: Bisacodyl 5 MG TAB PO PRN (11:54)
[2019-04-15] MEDS ORDERED: Bisacodyl 10 MG SUPP PR PRN (11:54)
--- NOTE | 2019-04-15 12:52 | EKG ---
Test Reason : CP Blood Pressure : / mmHG Vent. Rate : 067 BPM Atrial Rate : 067 BPM P-R Int : 186 ms QRS Dur : 148 ms QT Int : 418 ms P-R-T Axes : 064 049 -64 degrees QTc Int : 441 ms Normal sinus rhythm Right bundle branch block Possible Inferior infarct , age undetermined T wave abnormality, consider lateral ischemia Abnormal ECG Confirmed by JAG LEIJA, TON ([id number]), research editor ERIN ARDON ([id number]) on 04/15/2019 12:51:44 PM Referred By: Confirmed By:TON RM MD
--- NOTE | 2019-04-15 14:35 | PRG ---
DATE OF SERVICE: 04/15/2019 SERVICE: Pulmonary Medicine. INTERVAL HISTORY: The patient is doing really well from respiratory standpoint. Breathing comfortably. He has no complaints of chest pain, cough, nausea, vomiting, fevers, or chills. Otherwise, there has been no interval change to his condition. He has been weaned down to room air as his vital signs are otherwise stable. PHYSICAL EXAMINATION: VITAL SIGNS: Afebrile with a T-max of 99.0, pulse 73, blood pressure 116/54, respirations 19, and saturation 96% on room air. GENERAL: The patient is awake and alert, in no apparent distress. LUNGS: Decent air entry. There is no prolonged expiratory phase or crackles present. HEART: Normal rate, regular. ABDOMEN: Soft, nontender, and nondistended. Bowel sounds are positive. MUSCULOSKELETAL: No cyanosis or clubbing. No pitting in bilateral lower extremities. NEUROLOGIC: Grossly nonfocal. LABORATORY DATA: WBC 10.4, hemoglobin 9.6 and stable, and platelets 150,000. Creatinine 1.27, gently uptrending. Basic metabolic profile is otherwise unremarkable. IMAGING DATA: Chest x-ray shows changes of median sternotomy. Subclavian central line is in good position. There has been removal of the chest tube. No infiltrating disease is identified. ASSESSMENT: 1. Acute hypoxic respiratory failure, resolved. 2. Coronary artery disease, status post coronary artery bypass graft, postop day 1. 3. Type 2 diabetes mellitus. 4. Obstructive sleep apnea, suspected. DISCUSSION AND PLAN: The patient is doing absolutely wonderful from respiratory standpoint. At this point, he is stable for transition out of the ICU to the telemetry unit. When the patient leaves the ICU, he will have no further requirements for inpatient Pulmonary/Critical Care opinion, and I will sign off. He will discuss getting a sleep study with his primary care physician in the outpatient setting. He understands the negative impact bad sleep apnea can have on his health, including putting stress on the heart, brain, and kidneys through time that can cause medical illnesses and even . Please call with additional questions or concerns through time. Job ID: [id number] MTDD
[2019-04-15] MEDS ORDERED: Famotidine 20 MG TAB PO SCH (21:00)
[2019-04-15] MEDS: Rosuvastatin 10 MG TAB PO SCH (21:15)
[2019-04-16 04:49] LABS: Anion Gap 11 mmol/L (10-20); BUN (Urea Nitrogen) 22 mg/dL (8.4-25.7); Calc. Creatinine Clearance 56 mL/min (70-130); Calcium 8.7 mg/dL (7.8-10.44); Carbon Dioxide 22 mmol/L (23-31); Chloride 106 mmol/L (98-107); Estimated GFR-MDRD 73; Glucose 119 mg/dL (80-115); Potassium 3.9 mmol/L (3.5-5.1); Sodium 135 mmol/L (136-145)
[2019-04-16] MEDS ORDERED: Insulin Glargine 10 UNITS in Pre-Filled Syringe 1 EACH SC SCH ×2 (09:00→21:00)
[2019-04-16] MEDS ORDERED: Famotidine 20 MG TAB PO SCH (09:00)
[2019-04-16] MEDS: Polyethylene Glycol 3350 17 GM Packet PO SCH (09:36)
[2019-04-16] MEDS: Furosemide 40 MG TAB PO SCH (09:37)
[2019-04-16] MEDS: Aspirin 325 mg Enteric Coated Tablet PO SCH (09:37)
[2019-04-16] MEDS: Potassium Chloride 10 MEQ TAB PO SCH (09:37)
--- NOTE | 2019-04-16 12:19 | PRG ---
DATE OF SERVICE: 04/16/2019 SUBJECTIVE: This morning, the patient is awake, alert, responsive, feeling better, and less short of breath. OBJECTIVE: VITAL SIGNS: Blood pressure is 145/67, saturations are 95% on room air, respiratory rate 18, and temperature 98. CHEST: No wheezing or crackles. CARDIAC: Normal S1 and S2. No gallops. ABDOMEN: No masses. IMPRESSION: 1. Status post coronary artery bypass grafting. 2. Respiratory failure, resolved. 3. Coronary artery disease. 4. Diabetes. PLAN: Continue PT and supportive care. Pulmonary will follow at a distance. Job ID: [id number]
[2019-04-16] MEDS: Insulin Regular 300 UNITS/3 ML VIAL SC PRN (13:06)
--- NOTE | 2019-04-16 16:08 | PDOC.PN ---
- Subjective Encounter Start Date: 04/16/19 Encounter Start Time: 16:07 Mr. Vega was seen today in follow-up of NSTEMI. He is post CABG. He does not have any complaints. - Objective MAR Reviewed: Yes Vital Signs & Weight: Vital Signs (12 hours) Temp Pulse Pulse Pulse Resp BP BP 04/16/19 13:54 75 76 186/85 H 152/74 H 04/16/19 13:12 98.5 F 74 16 04/16/19 09:47 82 81 142/65 H 145/67 H 04/16/19 08:37 04/16/19 08:25 98.9 F 82 18 04/16/19 05:00 97.8 F 70 20 BP Pulse Ox Pulse Ox Pulse Ox 04/16/19 13:54 97 98 04/16/19 13:12 141/69 H 97 04/16/19 09:47 95 95 04/16/19 08:37 95 04/16/19 08:25 135/64 95 04/16/19 05:00 127/98 H 94 L Weight Weight 176 lb 11.2 oz Most Recent Monitor Data Heart Rate from ECG 70 NIBP 140/62 NIBP BP-Mean 113 Respiration from ECG 19 SpO2 94 I&O: 04/15/19 04/16/19 04/17/19 06:59 06:59 06:59 Intake Total 1040 1200 480 Output Total 785 1231 Balance 255 -31 480 Result Diagrams: 04/15/19 04:30 04/16/19 04:20 Additional Labs: Accuchecks 04/16/19 04/16/19 04/15/19 11:04 05:29 21:18 POC Glucose 221 H 135 H 175 H 04/15/19 17:28 POC Glucose 165 H Phys Exam - Physical Examination HEENT: PERRLA Respiratory: no wheezing, no rales, no rhonchi, clear to auscultation bilateral Cardiovascular: RRR, no significant murmur, no rub Gastrointestinal: soft, non-tender, no distention, positive bowel sounds Musculoskeletal: no edema, pulses present Dx/Plan (1) NSTEMI (non-ST elevated myocardial infarction) Code(s): I21.4 - NON-ST ELEVATION (NSTEMI) MYOCARDIAL INFARCTION Status: Acute (2) S/P CABG x 4 Status: Acute (3) CAD (coronary artery disease) Code(s): I25.10 - ATHSCL HEART DISEASE OF [place] CORONARY ARTERY W/O ANG PCTRS Status: Chronic Qualifiers: Coronary Disease-Associated Artery/Lesion type: [place] artery [place] vs. transplanted heart: [place] heart Associated angina: without angina Qualified Code(s): I25.10 - Atherosclerotic heart disease of [place] coronary artery without angina pectoris Comment: s/p cabg x4 04/13/2019 (4) DM type 2 (diabetes mellitus, type 2) Status: Chronic Qualifiers: Diabetes mellitus custodial insulin use: with intermediate teacher use Diabetes mellitus complication status: with other specified complication Qualified Code (s): E11.69 - Type 2 diabetes mellitus with other specified complication; Z79.4 - intermediate teacher (current) use of insulin (5) Dyslipidemia Code(s): E78.5 - HYPERLIPIDEMIA, UNSPECIFIED Status: Chronic (6) HTN (hypertension) Code(s): I10 - ESSENTIAL (PRIMARY) HYPERTENSION Status: Chronic Qualifiers: Hypertension type: essential hypertension Qualified Code(s): I10 - Essential (primary) hypertension - Plan * NSTEMI- s/p 4 vessel CABG- he is hemodynamically stable. He is progressing quite well * HTN- blood pressure is a bit labile- his allergies were noted, will continue to monitor * DM- blood glucose is stable. * Continue as per Cardiac rehab
--- NOTE | 2019-04-16 17:53 | PDOC.CTH ---
Cardiology Progress Note - Subjective Doing well. Tolerating PT. Passing gas. - Objective Vital Signs Temp Pulse Pulse Pulse Resp BP BP 04/16/19 16:47 98.1 F 78 18 04/16/19 13:54 75 76 186/85 H 152/74 H 04/16/19 13:12 98.5 F 74 16 04/16/19 09:47 82 81 142/65 H 145/67 H 04/16/19 08:37 04/16/19 08:25 98.9 F 82 18 BP Pulse Ox Pulse Ox Pulse Ox 04/16/19 16:47 168/78 H 97 04/16/19 13:54 97 98 04/16/19 13:12 141/69 H 97 04/16/19 09:47 95 95 04/16/19 08:37 95 04/16/19 08:25 135/64 95 Weight 176 lb 11.2 oz 04/15/19 04/16/19 04/17/19 06:59 06:59 06:59 Intake Total 1040 1200 480 Output Total 785 1231 400 Balance 255 -31 80 - Physical Examination General/Neuro: alert & oriented x3, NAD Neck: no JVD present Lungs: CTA, unlabored respirations Heart: RRR Abdomen: NT/ND Extremities: + edema B (trace) - Telemetry Telemetry Rhythm: NSR - Labs Result Diagrams: 04/15/19 04:30 04/16/19 04:20 Troponin/CKMB CK-MB (CK-2) 3.9 ng/mL (0-6.6) 04/09/19 00:25 Troponin I 4.835 ng/mL (< 0.028) H* 04/09/19 06:29 - Assessment/Plan 1. Multivessel AD. 2. S/p CABG 3. HTN 4. HLP 5. DMT2 PLAN: - ASA/statin for life. - Increase PT and ambulation as tolerated.
[2019-04-16] MEDS: Rosuvastatin 10 MG TAB PO SCH (20:51)
[2019-04-17 07:13] LABS: Anion Gap 13 mmol/L (10-20); BUN (Urea Nitrogen) 16 mg/dL (8.4-25.7); Calc. Creatinine Clearance 73 mL/min (70-130); Calcium 10.3 mg/dL (7.8-10.44); Carbon Dioxide 26 mmol/L (23-31); Chloride 102 mmol/L (98-107); Estimated GFR-MDRD 70; Glucose 162 mg/dL (80-115); Sodium 137 mmol/L (136-145)
[2019-04-17] MEDS: Aspirin 325 mg Enteric Coated Tablet PO SCH (08:42)
[2019-04-17] MEDS: Furosemide 40 MG TAB PO SCH (08:42)
[2019-04-17] MEDS: Polyethylene Glycol 3350 17 GM Packet PO SCH (08:43)
[2019-04-17] MEDS: Potassium Chloride 10 MEQ TAB PO SCH (08:43)
[2019-04-17] MEDS ORDERED: Famotidine 20 MG TAB PO SCH (09:00)
[2019-04-17] MEDS ORDERED: Insulin Glargine 20 UNITS in Pre-Filled Syringe 1 EACH SC SCH ×2 (09:00→21:00)
[2019-04-17] MEDS ORDERED: NIFEdipine XL 30 MG TAB PO SCH (09:00)
--- NOTE | 2019-04-17 12:13 | PDOC.PN ---
- Subjective Encounter Start Date: 04/17/19 Encounter Start Time: 12:11 Mr. Vega was seen today in follow-up post CABG. He says he feels fine. He does not have any complaints. - Objective MAR Reviewed: Yes Vital Signs & Weight: Vital Signs (12 hours) Temp Pulse Pulse Pulse Resp BP BP 04/17/19 09:37 84 89 180/80 H 117/60 04/17/19 08:42 85 04/17/19 08:38 99.1 F 85 18 04/17/19 04:00 98.9 F 86 18 BP BP Pulse Ox Pulse Ox Pulse Ox 04/17/19 09:37 97 94 L 04/17/19 08:42 04/17/19 08:38 146/74 H 96 04/17/19 04:00 168/77 H 94 L Weight Weight 174 lb 12.8 oz Most Recent Monitor Data Heart Rate from ECG 70 NIBP 140/62 NIBP BP-Mean 113 Respiration from ECG 19 SpO2 94 I&O: 04/16/19 04/17/19 04/18/19 06:59 06:59 06:59 Intake Total 1200 1450 240 Output Total 1231 2500 Balance -31 -1050 240 Result Diagrams: 04/15/19 04:30 04/17/19 06:12 Additional Labs: Accuchecks 04/17/19 04/16/19 04/16/19 05:32 20:44 16:51 POC Glucose 133 H 223 H 181 H Phys Exam - Physical Examination HEENT: PERRLA Respiratory: no wheezing, no rales, no rhonchi, clear to auscultation bilateral Cardiovascular: RRR, no significant murmur, no rub Gastrointestinal: soft, non-tender, no distention, positive bowel sounds Musculoskeletal: no edema, pulses present Dx/Plan (1) NSTEMI (non-ST elevated myocardial infarction) Code(s): I21.4 - NON-ST ELEVATION (NSTEMI) MYOCARDIAL INFARCTION Status: Acute (2) S/P CABG x 4 Status: Acute (3) CAD (coronary artery disease) Code(s): I25.10 - ATHSCL HEART DISEASE OF [place] CORONARY ARTERY W/O ANG PCTRS Status: Chronic Qualifiers: Coronary Disease-Associated Artery/Lesion type: [place] artery [place] vs. transplanted heart: [place] heart Associated angina: without angina Qualified Code(s): I25.10 - Atherosclerotic heart disease of [place] coronary artery without angina pectoris Comment: s/p cabg x4 04/13/2019 (4) DM type 2 (diabetes mellitus, type 2) Status: Chronic Qualifiers: Diabetes mellitus long-term insulin use: with long-term use Diabetes mellitus complication status: with other specified complication Qualified Code (s): E11.69 - Type 2 diabetes mellitus with other specified complication; Z79.4 - long term care social worker (current) use of insulin (5) Dyslipidemia Code(s): E78.5 - HYPERLIPIDEMIA, UNSPECIFIED Status: Chronic (6) HTN (hypertension) Code(s): I10 - ESSENTIAL (PRIMARY) HYPERTENSION Status: Chronic Qualifiers: Hypertension type: essential hypertension Qualified Code(s): I10 - Essential (primary) hypertension - Plan * NSTEMI- s/p CABG. He has done quite well post operatively * He has been cleared for discharge by Dr. Mcginnis * Stable for discharge home.
[2019-04-17 12:30] VITALS: TEMP 98.8
[2019-04-17] MEDS: Insulin Regular 300 UNITS/3 ML VIAL SC PRN (12:34)
[2019-04-17 13:32] VITALS: BP 171/80
[2019-04-17] MEDS: Rosuvastatin 10 MG TAB PO SCH (16:30)
--- NOTE | 2019-04-17 23:22 | DIS ---
DATE OF ADMISSION: 04/09/2019 DATE OF DISCHARGE: 04/17/2019 DISCHARGE DISPOSITION: Home. PRIMARY DISCHARGE DIAGNOSES: 1. Idg-HL-[id number] elevated myocardial infarction. 2. Status post bypass surgery. 3. Diabetes mellitus type 2. 4. Hypertension. 5. Hyperlipidemia. DISCHARGE MEDICATIONS: 1. Crestor 10 mg p.o. at bedtime. 2. Aston 5/325 q.4 hours. as needed. 3. Aspirin 325 mg daily. 4. Nifedipine XL 30 mg daily. 5. Levemir insulin 25 units twice a day. 6. Humalog 10 units with meals. 7. Doxazosin 2 mg daily. PROCEDURES DONE DURING THE ADMISSION: The patient had a cardiac catheterization which demonstrated left main as well as three-vessel coronary artery disease. There was mildly impaired left ventricular function. The patient had a 4-vessel bypass surgery. The patient also actually had an echocardiogram and this revealed left ventricular function was mildly depressed, EF was estimated at 45% to 50%. There was moderate mitral regurgitation. CODE STATUS: Full code. ALLERGIES: AMOXICILLIN, AMLODIPINE, LISINOPRIL, METOPROLOL, AND SULFA. HOSPITAL COURSE: Mr. Vega is a pleasant 68-year-old gentleman, who presented to the emergency room with complaints of chest pain. He had elevated troponins and was diagnosed with a [id number] elevated MD. He went for cardiac catheterization during this admission by Cardiology. He was found to have left main as well as 3-vessel coronary artery disease. Vascular Surgery was consulted and he underwent 4-vessel bypass. He had an uneventful postoperative course and was able to be discharged home on 04/17/2019. Job ID: [id number]
--- NOTE | 2019-04-18 01:25 | DIS ---
DATE OF ADMISSION: 04/09/2019 DATE OF DISCHARGE: 04/17/2019 HOSPITAL COURSE: This is a 68-year-old gentleman, who presented to the emergency room with chest pain and a bump in his troponin to about 5. He underwent cardiac catheterization by Dr. Yeager showing multivessel coronary artery disease. Cardiac echo showed a 45% to 50% mildly depressed ejection fraction. He was taken to the operating room where he underwent coronary artery bypass grafting x4 with a NGUYEN to a 1.5 mm LAD, saphenous vein graft to an OM-1 done rather distally due to diffuse palpable and visible disease, saphenous vein to a 1.5 mm left distal circumflex or posterolateral branch from the right and a 1.5 mm distal PDA which also had rather extensive plaque formation proximal and distal. Postoperatively, he did well with no complaints and he resumed his admitting medicine of aspirin 1 a day, Crestor 10 mg at bedtime, Cardura 1 mg a day, Levemir insulin. Discharge and followup instructions have been given. Job ID: [id number]
== END 2019-04-17 17:00 | disposition home or self-care (01) | DRG 233 ==
LOC: ERS → 2NO 01:13 → CCU 04-13 06:50 → 2NO 04-16 04:58
PROVIDERS: ADMIT Hospitalist; ATTEND Hospitalist
PROC: 4A023N7 Measurement of Cardiac Sampling and Pressure, Left Heart, Percutaneous Approach (ICD-10-PCS; 2019-04-09)
PROC: B2111ZZ Fluoroscopy of Multiple Coronary Arteries using Low Osmolar Contrast (ICD-10-PCS; 2019-04-09)
PROC: B2151ZZ Fluoroscopy of Left Heart using Low Osmolar Contrast (ICD-10-PCS; 2019-04-09)
PROC: 02100Z9 Bypass Coronary Artery, One Artery from Left Internal Mammary, Open Approach (ICD-10-PCS; principal; 2019-04-13)
PROC: 021209W Bypass Coronary Artery, Three Arteries from Aorta with Autologous Venous Tissue, Open Approach (ICD-10-PCS; 2019-04-13)
PROC: 06BQ4ZZ Excision of Left Saphenous Vein, Percutaneous Endoscopic Approach (ICD-10-PCS; 2019-04-13)
PROC: 5A1221Z Performance of Cardiac Output, Continuous (ICD-10-PCS; 2019-04-13)
DX: I21.4 Non-ST elevation (NSTEMI) myocardial infarction (principal); J96.01 Acute respiratory failure with hypoxia; I25.110 Atherosclerotic heart disease of native coronary artery with unstable angina pectoris; E11.9 Type 2 diabetes mellitus without complications; E78.5 Hyperlipidemia, unspecified; I10 Essential (primary) hypertension; N40.0 Benign prostatic hyperplasia without lower urinary tract symptoms; Z79.82 Long term (current) use of aspirin; Z79.899 Other long term (current) drug therapy; Z88.6 Allergy status to analgesic agent; Z88.2 Allergy status to sulfonamides; Z91.048 Other nonmedicinal substance allergy status; Z79.4 Long term (current) use of insulin
CPT/HCPCS: 36415; 36416; 36430; 71045; 80048; 80053; 80061; 82550; 82553; 82565; 82805; 82947; 83690; 83880; 84443; 84484; 85014; 85018; 85025; 85049; 85347; 85610; 85730; 86850; 86900; 86901; 93005; 93010; 93306; 93458; 93567; 93798; 94002; 94150; 94760; 96372; 99152; 99153; C1769; J0360; J0690; J1265; J1642; J1644; J1650; J1815; J1885; J2001; J2250; J2270; J2370; J2405; J2720; J3010; J3370; J3475; J3480; J3490; J7050; P9045; Q9967; S0028

== ENCOUNTER 2019-08-31 14:10 | Outpatient (CLI) | payer MEDICARE, OTHER ==
[2019-08-31] MEDS ORDERED: Iopamidol 370 76% 100 ML VIAL ONE (14:22)
--- NOTE | 2019-08-31 15:19 | CT ---
CTA OF THE NECK WITH IV CONTRAST AND 3-D REFORMATTED IMAGING. INDICATION: History of right carotid occlusion COMPARISON: None FINDINGS: Right CCA: Patent. Right ICA: There is 60% luminal caliber narrowing due to partially calcified atherosclerotic plaque involving the proximal right ICA. The remaining visualized course of the cervical, petrous, precavernous, cavernous and supraclinoid ICAs on the right appears patent. Right Subclavian: Patent. Right Vertebral Artery: There is high-grade stenosis involving the origin of the right vertebral art tan. The remaining visualized course of the vertebral artery is widely patent. Left CCA: Patent. Left ICA: The left internal carotid artery is tortuous but without hemodynamically significant steno sis. Left Subclavian: There is mild narrowing involving the proximal left subclavian artery. Left Vertebral Artery: Patent. Aerodigestive tract: Clear. Parotids/Submandibular/Thyroid glands: Normal. Lymph nodes: No pathologically enlarged lymph nodes. Lung Apices: Clear. Bones: No acute osseous abnormality. 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 Visualized aspects of the MCAs, ACAs, anterio r communicating,, left posterior communicating and offender employment specialist are widely patent. IMPRESSION: 1. 60% luminal caliber narrowing involving the proximal right ICA. 2. High-grade stenosis involving the origin of the right vertebral artery. 3. Mild luminal caliber narrowing involving the proximal left subclavian artery.
== END 2019-08-31 14:11 | disposition home or self-care (01) ==
LOC: CT 14:10
PROVIDERS: ATTEND Thoracic Surgery (Cardiothoracic Vascular Surgery)
DX: I65.23 Occlusion and stenosis of bilateral carotid arteries (principal)
CPT/HCPCS: 70498; Q9967

== ENCOUNTER 2019-12-28 22:55 | Observation (INO) | payer MEDICARE, OTHER ==
[2019-12-29] MEDS ORDERED: Acetaminophen 325 MG TAB ONE (00:21)
[2019-12-29] MEDS ORDERED: Cefepime 1 GM VIAL ONE (00:21)
--- NOTE | 2019-12-29 03:41 | PDOC.HHP ---
Hospitalist HPI - History of Present Illness testicular pain History of Present Illness: This is a 69 year old male with past medical history of CAD s/p CABG, BPH who self catheterizes who presented to the ER with worsening testicular pain. The patient states three weeks ago he noticed that his urine was yellow and gunky. Six days ago his urine became more cloudy and he self diagnosed himself with a UTI and got amoxicillin over the internet and started taking it. He denied any pain with urination but noticed he was having higher post void residuals and had to increase his self catheterizations to five times a day. He also stated that normally he has some resistance to insertion but now the catheter is inserting without resistance which makes him concerned. Four days ago the patient stated he started developing pain above his groin area. Over the past few days it migrated to his scrotal area and he is having severe testicular pain , right greater than left as well as swelling. He also developed low grade fever to 99.4. He went to [place] [facility]. BP was 175 systolic. He was found to have a WBC of 14 and elevated CRP and was sent to [facility] for testicular ultrasound. UA there showed + nitrite and leukocyte esterase as well as 50 WBC and patient was given IV levaquin. Of note, the patient states he stopped all of his home medication the past few days to see if it was making his pain worst. Patient states pain is 0/10 if he doesn't move, but 8/10 with movement. ED Course: The patient was afebrile here with normal vitals. He had testicular ultrasound which showed epidydmitis/orchitis per ER attending . He was given one dose of IV cefepime. Hospitalist ROS - Review of Systems Constitutional: reports: fever (low grade temp 99.7). denies: chills ENT: denies: ear pain, ear discharge Respiratory: denies: cough, dry, shortness of breath Cardiovascular: denies: chest pain, palpitations, orthopnea Gastrointestinal: denies: nausea, vomiting, abdominal pain Musculoskeletal: denies: neck pain, shoulder pain, arm pain Hospitalist History - Past Medical History Other Medical History: CAD s/p CABG Diabetes BPH with intermittent catheterization - Past Surgical History Other Surgical History: CAD s/p CABG - Family History Other Family History: Diabetes Heart problems - Social History Smoking Status: Never smoker Alcohol: reports: None 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 Lives in [place] - Exam General Appearance: NAD, awake alert Eye: PERRL, anicteric sclera ENT: normocephalic atraumatic, no oropharyngeal lesions Neck: supple, no JVD Heart: RRR, no murmur, no gallops, no rubs Respiratory: CTAB, no wheezes, no rales, no ronchi Gastrointestinal: soft, non-tender, non-distended, normal bowel sounds Gastrointestinal - other findings: scrotal erythema and swelling, mild tenderness to palpation. Inguinal LAD Extremities: no cyanosis, no clubbing, no edema Skin: normal turgor, no lesions, no rashes Neurological: cranial nerve grossly intact, normal sensation to touch, no focal deficits, no new deficit Hospitalist Results - Labs Result Diagrams: 12/29/19 04:20 12/29/19 04:20 Hospitalist H&P A/P - Plan Plan: This is a 69 year old male with BPH who presents with UTI and worsening testicular pain, failed outpatient amoxicillin #Epidydymitis/orchitis #Leukocytosis -pt with WBC of 13, UA + at [place], will send urine culture - will treat with ceftriaxone pending urine culture. Pt failed outpatient amoxicillin - testicular ultrasound showing orchitis/epidydmitis per ER, final report pending - will place urology consult given patient was supposed to see Dr. Mast this week [place] on CKD - creatinine 1.3 - will do gentle hydration with IV fluids Hypertension - hold amlodipine - pt wants to discontinue his lisinopril due to cough Type II diabetes - insulin sliding scale - fingersticks achs CAD s/p CABG - continue aspirin and statin Anemia - Hb 13, repeat tomorrow Code status: full code
[2019-12-29] MEDS ORDERED: HumaLOG 300 UNITS/3 ML VIAL SC PRN (03:53)
[2019-12-29] MEDS ORDERED: HYDROcodone/Acetaminophen 5/325 mg Tablet PO PRN (03:53)
[2019-12-29] MEDS ORDERED: Dextrose 5% in Water 1,000 ML IV PRN (03:53)
[2019-12-29] MEDS ORDERED: Dextrose 50% Abboject 50 ML SYRINGE SLOW IVP PRN (03:53)
[2019-12-29 04:13] LABS: Bilirubin Negative (Negative); Blood, Urine Trace (Negative); Clarity Clear (Clear); Glucose, Urine (Dipstick) 500 mg/dL (Negative); Leukocyte 250 Leu/uL (Negative); Nitrite Negative (Negative); Protein, Urine (Dipstick) Negative (Neg-Trace); Squamous Epithelial 0-3 HPF (0-3); Urobilinogen Normal mg/dL (Less than 2); WBC/HPF 21-50 HPF (0-3)
[2019-12-29 04:25] LABS: Bacteria/HPF 1+ HPF (None Seen)
[2019-12-29 04:33] LABS: Hemoglobin 13.2 g/dL (14.0-18.0); Mean Corpuscular HGB CONC 33.4 g/dL (32.0-36.0); Mean Corpuscular Hemoglobin 29.7 pg (27.0-31.0); Mean Corpuscular Volume 88.8 fL (78.0-98.0); Mean Platelet Volume 7.2 fL (7.4-10.4); Platelet Count 191 thou/uL (130-400); RBC Distribution Width 12.7 % (11.5-14.5); Red Blood Cell (RBC) Count 4.44 mill/uL (4.70-6.10); White Blood Cell (WBC) Count 13.6 thou/uL (4.8-10.8)
[2019-12-29 04:59] LABS: Anion Gap 13 mmol/L (10-20); BUN (Urea Nitrogen) 15 mg/dL (8.4-25.7); Calc. Creatinine Clearance 0 mL/min (70-130); Calcium 8.8 mg/dL (7.8-10.44); Carbon Dioxide 20 mmol/L (23-31); Chloride 107 mmol/L (98-107); Estimated GFR-MDRD 81; Glucose 68 mg/dL (83-110); Potassium 3.9 mmol/L (3.5-5.1); Sodium 136 mmol/L (136-145)
--- NOTE | 2019-12-29 05:34 | PDOC.FMACP ---
Advance Care Planning - Note Summary: Advanced Care Planning was discussed. The diagnosis, prognosis and goals of care were discussed. Appropriate forms and documentation to accomplish the goals of care were discussed. All questions were answered. The Palliative Care Team will be engaged to assist with completion of any outstanding forms that are needed. Patient wishes to be full code Time Spent (mins): 35
[2019-12-29 06:03] VITALS: BMI 24.5
[2019-12-29] MEDS: Sodium Chloride 0.9% 1,000 ML IV SCH ×2 (06:44→17:10)
[2019-12-29] MEDS: cefTRIAXone\\ROCEPHIN 1 GM in Sodium Chloride 0.9% 100 ML IVPB SCH (06:44)
[2019-12-29] MEDS ORDERED: Acetaminophen 325 MG TAB PO PRN (07:00)
--- NOTE | 2019-12-29 07:58 | ULT ---
PRELIMINARY REPORT/[facility]/EMERGENCY AFTER HOURS PROCEDURE: Scrotal and testicular ultrasound: No prior. Findings: The right testis measures 2.9 x 4.6 x 2.0 cm. The left testis measures 3.3 x 3.9 x 2.7 cm. there may be slightly increased blood flow on the right testis. No testicular mass. Normal bilateral testicular blood flow. No evidence of testicular torsion. Small right hydrocele. Small left hydrocele. Asymmetrically heterogeneous right epididymis, most prominent in the tail of the epididymis. No varicocele. Impression: Findings suspicious for right epididymoorchitis. Small bilateral hydroceles. Pulsatile b lood flow in the right and left testis. ELECTRONICALLY SIGNED BY: Remington Dotson MD Dec 29, 2019 1:11:59 AM CDT FINAL REPORT BILATERAL TESTICULAR ULTRASOUND WITH GRAYSCALE, COLOR FLOW, AND SPECTRAL DOPPLER IMAGING: I agree with preliminary report given by [facility] Transcribed Date/Time: 12/29/2019 8:14 AM
[2019-12-29] MEDS ORDERED: NIFEdipine XL 30 MG TAB PO SCH (09:00)
[2019-12-29] MEDS: Aspirin 325 mg Enteric Coated Tablet PO SCH (09:25)
--- NOTE | 2019-12-29 16:24 | CON ---
DATE OF CONSULTATION: 12/29/2019 REASON FOR CONSULTATION: Urinary tract infection. CHIEF COMPLAINT: Fevers and bladder infection. HISTORY OF PRESENT ILLNESS: This is a 69-year-old male who has been followed by me previously. He was last seen September 2018, at which point, he underwent cystoscopy showing very obstructing prostate with long-term changes to his bladder from this. 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 He has been performing CIC 3 to 4 times per day ever since. He has had a few infections in the interim and tells me that over the past couple of months, he has had three infections that he has tried to treat with vitamin C, B12, one to two doses of amoxicillin that he seems to have gotten from the Internet. These infections have continued to recur and recently he developed worsening symptoms with suprapubic pain, cloudy purulent urine, right testicular pain, fevers. He is now admitted for this after presenting to the emergency room overnight and has been started on cefepime with urine culture pending. He tells me that over the past few days, it has been easier to catheterize, which has concerned him. He denies hematuria, flank pain, nausea, or vomiting. He has undergone coronary artery bypass graft since his last visit with me and likely would be cleared for prostate surgery at this point. PAST MEDICAL HISTORY: Coronary artery disease, urinary retention, lower urinary tract symptoms due to enlarged prostate, and diabetes. SURGICAL HISTORY: CABG. FAMILY HISTORY: Reviewed, noncontributory. SOCIAL HISTORY: Nonsmoker. No substance abuse. MEDICATIONS: Reviewed. No pertinent urologic medications. REVIEW OF SYSTEMS: Ten-point review of systems performed, negative except as mentioned above. PHYSICAL EXAMINATION: GENERAL: No acute distress. Conversant. HEENT: Eyes; extraocular movements intact. Sclerae are nonicteric. Head; normocephalic and atraumatic. NECK: Supple. Trachea midline. HEART: Regular rate and rhythm. RESPIRATORY: Unlabored breathing. Symmetric chest expansion. ABDOMEN: Soft, nontender, and nondistended. : Normal phallus, right testicle indurated and tender. Left testicle normal. No suprapubic tenderness or distention. EXTREMITIES: Without clubbing, cyanosis, or edema. SKIN: Warm and dry. NEUROLOGIC: Alert and oriented x3. PSYCHIATRIC: Normal mood and affect. LABORATORY DATA: White count 13, creatinine 0.92. Urinalysis, 250 leukocyte esterase, negative nitrites. Urine culture pending. ASSESSMENT AND PLAN: Urinary retention secondary to enlarged prostate with urinary tract infection and epididymitis. Continue broad-spectrum antibiotics as we await culture results. I have recommended that we replace a Mcbride catheter for optimal drainage of his bladder while treating the infection over the next few days. Once the patient has been treated for this acute infection, we will revisit the role of transurethral resection to help him empty more easily and avoid the risks of CIC. I will continue to follow while he is here. Job ID: [id number]
[2019-12-29] MEDS ORDERED: Rosuvastatin 10 MG TAB PO SCH (21:00)
[2019-12-30 06:14] LABS: Hemoglobin 13.8 g/dL (14.0-18.0); Mean Corpuscular HGB CONC 31.6 g/dL (32.0-36.0); Mean Corpuscular Hemoglobin 28.3 pg (27.0-31.0); Mean Corpuscular Volume 89.4 fL (78.0-98.0); Mean Platelet Volume 7.4 fL (7.4-10.4); Platelet Count 201 thou/uL (130-400); RBC Distribution Width 12.7 % (11.5-14.5); Red Blood Cell (RBC) Count 4.88 mill/uL (4.70-6.10); White Blood Cell (WBC) Count 9.6 thou/uL (4.8-10.8)
[2019-12-30 06:33] LABS: Anion Gap 11 mmol/L (10-20); BUN (Urea Nitrogen) 14 mg/dL (8.4-25.7); Calc. Creatinine Clearance 72 mL/min (70-130); Calcium 9.4 mg/dL (7.8-10.44); Carbon Dioxide 25 mmol/L (23-31); Chloride 106 mmol/L (98-107); Estimated GFR-MDRD 76; Glucose 118 mg/dL (83-110); Sodium 138 mmol/L (136-145)
[2019-12-30] MEDS: cefTRIAXone\\ROCEPHIN 1 GM in Sodium Chloride 0.9% 100 ML IVPB SCH (06:53)
[2019-12-30] MEDS: Sodium Chloride 0.9% 1,000 ML IV SCH (07:28)
[2019-12-30] MEDS: Aspirin 325 mg Enteric Coated Tablet PO SCH (07:38)
[2019-12-30 08:56] VITALS: BP 155/70; TEMP 98.4
--- NOTE | 2019-12-30 12:55 | PRG ---
DATE OF SERVICE: 12/30/2019 CHIEF COMPLAINT: Testicular pain, suprapubic pain. SUBJECTIVE: No acute events overnight. Pain has improved, although he does still endorse right testicular and perineal discomfort, albeit improved from yesterday. He denies fevers, nausea, or flank pain. REVIEW OF SYSTEMS: 10-point review of systems otherwise negative except as listed above. PHYSICAL EXAMINATION: VITAL SIGNS: Afebrile. Vitals stable overnight. Good urine output. GENERAL: No acute distress, conversant. RESPIRATORY: Breathing unlabored. Symmetric chest expansion. HEART: Regular rate and rhythm. ABDOMEN: Soft, nontender, and nondistended. : Mcbride catheter in good position draining clear yellow urine. SKIN: Warm and dry. EXTREMITIES: No peripheral edema or cyanosis. NEUROLOGIC: Alert and oriented x3. Normal mood and affect. LABORATORY DATA: White count has improved from 13.6 to 9.6. Creatinine remains stable. Urine culture, no growth at 24 hours. ASSESSMENT AND PLAN: Chronic urinary retention with urinary tract infection and epididymitis, prostatitis. The patient is stable enough that he can discharge home today with 2 weeks of doxycycline. Should his culture returned positive, such that we need a different plan, I will contact him. Medication has already been sent to his pharmacy. I have advised that he can take his catheter out and resume CIC on Thursday. I will see him in about 2 weeks with postvoid residual. At that point, we will begin discussing surgical intervention for his prostate obstruction. All of his questions were answered. 45 minutes spent in patient care. Job ID: [id number]
[2019-12-30] MEDS ORDERED: Doxycycline 100 MG CAP PO SCH (21:00)
--- NOTE | 2020-01-01 06:39 | DIS ---
DATE OF ADMISSION: 12/29/2019 DATE OF DISCHARGE: 12/30/2019 PRIMARY CARE PROVIDER: Reji Low MD DISCHARGE DIAGNOSES: 1. Urinary tract infection. 2. Epididymitis. 3. Prostatitis. CONDITION OF PATIENT ON THE DAY OF DISCHARGE: Stable. I assessed Mr. Vega on the day of discharge. He denies any chest pain or shortness of breath. Vital signs are stable. S1 and S2 are heard, regular. Lungs are clear to auscultation bilaterally. CONSULTATIONS DURING THIS HOSPITALIZATION: Urology, Paul Mast MD POST-ACUTE CARE FOLLOWUP: With primary care provider in [address] Mast in 2 weeks. ACTIVITY: No restrictions. DIET: Heart healthy and diabetic. DISCHARGE MEDICATIONS: He is being discharged home on doxycycline 100 mg p.o. b.i.d. Otherwise, no change was made to his pre-admission home medications. HOSPITAL COURSE: Mr. Vega is a pleasant 69-year-old gentleman, who was admitted to [facility] on December 29, 2019, for urinary tract infection, epididymitis and prostatitis. He had testicular ultrasound, which showed findings suspicious for right epididymo-orchitis, small bilateral hydroceles, and pulsatile blood flow in the right and left testes. He was seen by Urology Service. He was treated with antibiotics. He has been cleared for discharge by Urology Service. Urology Service will follow up as an outpatient with postvoid residual and will also discuss surgical intervention for prostate obstruction. Many thanks for allowing me to participate in your patient's care. Please feel free to contact me with any questions or concerns. On the day of discharge, he had an unremarkable chem-7, normal white count of 9600, hemoglobin 13.8, and platelet count 201,000. Preliminary urine cultures are negative. Urology Service will follow up on his culture results and will notify him if antibiotics need to be changed. DISCHARGE DESTINATION: Home. Job ID: [id number]
== END 2019-12-30 11:47 | disposition home or self-care (01) ==
LOC: ERS 22:55 → INTOOBSV 12-29 04:55 → T4-A 12-29 04:55
PROVIDERS: ADMIT Internal Medicine; ATTEND Internal Medicine
DX: N45.1 Epididymitis (principal); N41.9 Inflammatory disease of prostate, unspecified; N39.0 Urinary tract infection, site not specified; N40.1 Benign prostatic hyperplasia with lower urinary tract symptoms; R33.8 Other retention of urine; N43.3 Hydrocele, unspecified; I12.9 Hypertensive chronic kidney disease with stage 1 through stage 4 chronic kidney disease, or unspecified chronic kidney disease; E11.22 Type 2 diabetes mellitus with diabetic chronic kidney disease; N18.9 Chronic kidney disease, unspecified; N17.9 Acute kidney failure, unspecified; D63.1 Anemia in chronic kidney disease; I25.10 Atherosclerotic heart disease of native coronary artery without angina pectoris; Z79.4 Long term (current) use of insulin; Z79.82 Long term (current) use of aspirin; Z79.899 Other long term (current) drug therapy; Z88.0 Allergy status to penicillin; Z88.2 Allergy status to sulfonamides; Z88.8 Allergy status to other drugs, medicaments and biological substances; Z95.1 Presence of aortocoronary bypass graft
CPT/HCPCS: 51701; 51702; 76870; 80048 ×2; 81003; 85027 ×2; 93976; 96361 ×2; 96365; 96367; 96376; 97139; 99285; G0378 ×2; 36415; J0692; J0696; J3490

== ENCOUNTER 2020-07-13 13:06 | Outpatient (CLI) | payer MEDICARE, OTHER ==
[2020-07-13 16:10] LABS: Hemoglobin 15.5 g/dL (14.0-18.0); Mean Corpuscular HGB CONC 33.9 g/dL (32.0-36.0); Mean Corpuscular Hemoglobin 31.4 pg (27.0-31.0); Mean Corpuscular Volume 92.6 fL (78.0-98.0); Mean Platelet Volume 7.7 fL (7.4-10.4); Platelet Count 195 thou/uL (130-400); Red Blood Cell (RBC) Count 4.94 mill/uL (4.70-6.10); White Blood Cell (WBC) Count 7.4 thou/uL (4.8-10.8)
[2020-07-13 16:15] LABS: Bacteria/HPF None Seen HPF (None Seen); Bilirubin Negative (Negative); Blood, Urine Trace (Negative); Clarity Turbid (Clear); Glucose, Urine (Dipstick) Normal (Negative); Ketone, Urine Negative (Negative); Leukocyte 500 Leu/uL (Negative); Nitrite Negative (Negative); Protein, Urine (Dipstick) Negative (Neg-Trace); Specific Gravity, Urine 1.008 (1.002-1.036); Squamous Epithelial None Seen HPF (0-3); Urobilinogen Normal mg/dL (Less than 2); WBC/HPF Greater than 50 HPF (0-3); pH, Urine 6.5 (5.0-9.0)
[2020-07-13 16:24] LABS: Anion Gap 13 mmol/L (10-20); BUN (Urea Nitrogen) 21 mg/dL (8.4-25.7); Calc. Creatinine Clearance 0 mL/min (70-130); Calcium 9.7 mg/dL (7.8-10.44); Carbon Dioxide 25 mmol/L (23-31); Chloride 102 mmol/L (98-107); Estimated GFR-MDRD 66; Glucose 171 mg/dL (83-110); Potassium 5.1 mmol/L (3.5-5.1); Sodium 135 mmol/L (136-145)
[2020-07-14 14:55] LABS: SARS-CoV-2 MS2 Positive; SARS-CoV-2 N Gene Negative; SARS-CoV-2 S Gene Negative; SARS-CoV-2 by NAA Not Detected (NotDetected); SARS-CoV-2 orf1ab Negative
--- NOTE | 2020-07-15 13:09 | EKG ---
Test Reason : Blood Pressure : / mmHG Vent. Rate : 064 BPM Atrial Rate : 064 BPM P-R Int : 198 ms QRS Dur : 138 ms QT Int : 406 ms P-R-T Axes : 073 043 090 degrees QTc Int : 418 ms Normal sinus rhythm Right bundle branch block T wave abnormality, consider lateral ischemia Abnormal ECG Confirmed by BERTA ANTONIO MD ([id number]) on 07/15/2020 1:09:07 PM Referred By: WILLIE Confirmed By:BERTA ANTONIO MD
== END 2020-07-13 13:07 | disposition home or self-care (01) ==
LOC: LABBT 13:06
PROVIDERS: ATTEND Urology
DX: Z01.818 Encounter for other preprocedural examination (principal); Z20.828 Contact with and (suspected) exposure to other viral communicable diseases; N40.1 Benign prostatic hyperplasia with lower urinary tract symptoms; R33.8 Other retention of urine
CPT/HCPCS: 80048; 81001; 85027; 87077; 87086; 87186; 93005; U0003; 87635; 93010

== ENCOUNTER 2020-07-17 06:05 | Observation (INO) | payer MEDICARE, OTHER ==
[2020-07-16 09:58] VITALS: BMI 26.6
[2020-07-17] MEDS ORDERED: Levofloxacin 500 mg/D5W 100 ml Premix Bag ONE (06:35)
[2020-07-17] MEDS ORDERED: Fentanyl 100 MCG/2 ML VIAL ONE (07:15)
--- NOTE | 2020-07-17 09:25 | OP ---
DATE OF PROCEDURE: 07/17/2020 PREOPERATIVE DIAGNOSES: Enlarged prostate with lower urinary tract symptoms, urinary retention. POSTOPERATIVE DIAGNOSES: Enlarged prostate with lower urinary tract symptoms, urinary retention. PROCEDURE PERFORMED: Bipolar transurethral resection of prostate. ANESTHESIA: General. COMPLICATIONS: None. ESTIMATED BLOOD LOSS: Minimal. SPECIMEN: Prostate chips. DESCRIPTION OF PROCEDURE: After informed consent, the patient was taken to the operating room, transferred to the table on his own power. Anesthesia was established. A time-out was performed, showing the correct patient, site, and procedure. Preoperative antibiotics were administered. He was prepped and draped in the lithotomy position. I calibrated the urethral meatus from 20 to 28-Chinese with Patria sounds. The resectoscope was then advanced through the urethra, noting a normal course and caliber of the urethra, and guided into the prostate noting coapting lateral lobes and a very high bladder neck. The bladder was then entered and systematically examined, noting trabeculation and multiple diverticula throughout. There were no mucosal abnormalities. Both ureters were normal in appearance. I used the resection loop to take down the bladder neck/median lobe from the bladder neck back to the verumontanum. The lateral lobes were then resected first left then right. He had a significant amount of anterior obstructing tissue as well, which had to be resected. Meticulous hemostasis was then achieved. The Jose Miguel evacuator was used to remove all prostate chips. The bladder was then re-examined, noting no further prostate chips, and both ureters were uninvolved with resection. The scope was then withdrawn, and a 22-Chinese Mcbride catheter was placed with 30 mL instilled in the balloon. CBI was connected. He was then awoken from anesthesia, transferred back to his hospital bed, and taken to PACU in stable condition, where he will be admitted overnight for CBI. Job ID: [id number]
[2020-07-17] MEDS ORDERED: Non-Formulary Item 1 EACH (Insulin Detemir [Levemir] 100 UNIT/ML Vial) SQ SCH (10:47)
[2020-07-17] MEDS ORDERED: Zolpidem Tartrate 5 MG TAB PO PRN (10:47)
[2020-07-17] MEDS ORDERED: hydrALAZINE 20 MG/ML VIAL SLOW IVP PRN (10:47)
[2020-07-17] MEDS ORDERED: Hyoscyamine Sulfate SL 0.125 mg Tablet SL PRN (10:47)
[2020-07-17] MEDS ORDERED: Ondansetron PF 4 MG/2 ML Vial IVP PRN (10:47)
[2020-07-17] MEDS ORDERED: HYDROcodone/Acetaminophen 5/325 mg Tablet PO PRN (10:47)
[2020-07-17] MEDS ORDERED: diphenhydrAMINE 50 MG/ML VIAL IVP PRN (10:47)
[2020-07-17] MEDS ORDERED: Ketorolac Tromethamine 30 MG/ML VIAL IVP PRN (10:47)
[2020-07-17] MEDS ORDERED: Insulin Glargine 35 UNITS in Pre-Filled Syringe 1 EACH SC SCH ×2 (11:00→21:00)
[2020-07-17] MEDS ORDERED: Docusate 100 MG CAP PO SCH (11:00)
[2020-07-17] MEDS ORDERED: Aspirin 81 mg Enteric Coated Tablet PO SCH (11:00)
[2020-07-17] MEDS ORDERED: Lisinopril 10 MG TAB PO SCH (11:00)
[2020-07-17] MEDS ORDERED: Ketorolac Tromethamine 30 MG/ML VIAL ONE (12:01)
[2020-07-17] MEDS ORDERED: Lidocaine 1% PF 5 ML VIAL ONE (12:01)
[2020-07-17] MEDS ORDERED: Ondansetron PF 4 MG/2 ML Vial ONE (12:01)
[2020-07-17] MEDS ORDERED: PROPOFOL 200 MG/20 ML VIAL ONE (12:01)
[2020-07-17] MEDS ORDERED: EPHEDRINE 25 MG/5 ML SYRINGE ONE (12:01)
[2020-07-17] MEDS: Sodium Chloride 0.9% 1,000 ML IV SCH ×2 (12:13→18:42)
[2020-07-17] MEDS ORDERED: Dextrose 5% in Water 1,000 ML IV PRN (14:00)
[2020-07-17] MEDS ORDERED: Dextrose 50% Abboject 50 ML SYRINGE IVP PRN (14:00)
[2020-07-17] MEDS ORDERED: Rosuvastatin 10 MG TAB PO SCH (21:00)
[2020-07-17] MEDS: Docusate 100 MG CAP PO SCH (21:02)
[2020-07-18] MEDS: Sodium Chloride 0.9% 1,000 ML IV SCH (05:58)
[2020-07-18] MEDS: Docusate 100 MG CAP PO SCH (08:58)
[2020-07-18] MEDS ORDERED: Insulin Glargine 10 UNITS in Pre-Filled Syringe 1 EACH SC SCH (09:00)
[2020-07-18] MEDS ORDERED: Lisinopril 10 MG TAB PO SCH (09:00)
[2020-07-18] MEDS ORDERED: Aspirin 81 mg Enteric Coated Tablet PO SCH (09:00)
[2020-07-18 10:53] VITALS: BP 155/72; TEMP 97.9
[2020-07-18] MEDS ORDERED: Insulin Glargine 25 UNITS in Pre-Filled Syringe 1 EACH SC SCH (21:00)
== END 2020-07-18 12:00 | disposition home or self-care (01) ==
LOC: SDC 06:05 → SURG B 07:38 → SDC 10:49
PROVIDERS: ADMIT Urology; ATTEND Urology
PROC: 0VT08ZZ Resection of Prostate, Via Natural or Artificial Opening Endoscopic (ICD-10-PCS; principal; 2020-07-17)
DX: N40.1 Benign prostatic hyperplasia with lower urinary tract symptoms (principal); R33.8 Other retention of urine; N13.8 Other obstructive and reflux uropathy; R39.198 Other difficulties with micturition; N32.3 Diverticulum of bladder; I10 Essential (primary) hypertension; I25.10 Atherosclerotic heart disease of native coronary artery without angina pectoris; E11.40 Type 2 diabetes mellitus with diabetic neuropathy, unspecified; K21.9 Gastro-esophageal reflux disease without esophagitis; Z79.82 Long term (current) use of aspirin; Z79.4 Long term (current) use of insulin; Z79.899 Other long term (current) drug therapy; Z88.0 Allergy status to penicillin; Z88.8 Allergy status to other drugs, medicaments and biological substances
CPT/HCPCS: 36416; 88305; 96360; 96361; G0378; J1815; J1885; J1956; J2405; J2704; J3010

== ENCOUNTER 2020-08-22 03:07 | Emergency (ER) | payer MEDICARE, OTHER ==
[2020-08-22 04:10] LABS: #Basophils 0.1 thou/uL (0.0-0.2); #Eosinphils 0.3 thou/uL (0.0-0.7); #Lymphocytes 2.1 thou/uL (1.20-3.40); #Monocytes 0.8 thou/uL (0.11-0.59); %Basophils 0.9 % (0.0-1.0); %Eosinophils 3.8 % (0.0-10.0); %Monocytes 9.3 % (0.0-10.0); Hemoglobin 14.9 g/dL (14.0-18.0); Mean Corpuscular HGB CONC 34.1 g/dL (32.0-36.0); Mean Corpuscular Hemoglobin 30.9 pg (27.0-31.0); Mean Corpuscular Volume 90.6 fL (78.0-98.0); Mean Platelet Volume 7.1 fL (7.4-10.4); Platelet Count 212 thou/uL (130-400); RBC Distribution Width 11.8 % (11.5-14.5); Red Blood Cell (RBC) Count 4.82 mill/uL (4.70-6.10); White Blood Cell (WBC) Count 8.3 thou/uL (4.8-10.8)
[2020-08-22 04:20] LABS: Bilirubin Negative (Negative); Blood, Urine Large (Negative); Glucose, Urine (Dipstick) 250 mg/dL (Negative); Ketone, Urine 15 mg/dL (Negative); Leukocyte Moderate (Negative); Nitrite Positive (Negative); Protein, Urine (Dipstick) > or equal to 300 mg/dL (Neg-Trace)
[2020-08-22 04:21] LABS: Clarity Bloody (Clear)
[2020-08-22 04:24] LABS: RBC/HPF Greater than 50 HPF (0-3)
[2020-08-22 04:25] LABS: Squamous Epithelial 0-3 HPF (0-3); Transitional Epithelial 0-3 HPF (None Seen)
[2020-08-22 04:26] LABS: Bacteria/HPF None Seen HPF (None Seen); Trichomonas/HPF None Seen HPF (None Seen); Yeast-Budding None Seen HPF (None Seen)
[2020-08-22 04:29] LABS: Anion Gap 15 mmol/L (10-20); BUN (Urea Nitrogen) 26 mg/dL (8.4-25.7); Calc. Creatinine Clearance 0 mL/min (70-130); Calcium 9.5 mg/dL (7.8-10.44); Carbon Dioxide 21 mmol/L (23-31); Chloride 103 mmol/L (98-107); Estimated GFR-MDRD 56; Glucose 262 mg/dL (83-110); Potassium 4.2 mmol/L (3.5-5.1); Sodium 135 mmol/L (136-145)
== END 2020-08-22 05:42 | disposition home or self-care (01) ==
LOC: ERS 03:07
DX: N39.0 Urinary tract infection, site not specified (principal); R33.9 Retention of urine, unspecified; E11.9 Type 2 diabetes mellitus without complications; E78.5 Hyperlipidemia, unspecified; Z79.899 Other long term (current) drug therapy
CPT/HCPCS: 36415; 51702; 80048; 81003; 81015; 85025; 87086

== ENCOUNTER 2022-03-20 14:24 | Inpatient (IN) | payer MEDICARE, OTHER ==
[2022-03-20 16:34] VITALS: BMI 26.6
[2022-03-20] MEDS ORDERED: Piperacillin/Tazobactam 3.375 GM in Sodium Chloride 0.9% 100 ML IVPB SCH (16:45)
[2022-03-20] MEDS ORDERED: Dextrose 50% Abboject 50 ML SYRINGE SLOW IVP PRN (17:10)
[2022-03-20] MEDS ORDERED: Dextrose 5% in Water 1,000 ML IV PRN (17:10)
[2022-03-20] MEDS ORDERED: Acetaminophen 325 MG TAB PO PRN (17:10)
[2022-03-20] MEDS ORDERED: Ondansetron ODT 4 MG TAB PO PRN (17:10)
[2022-03-20] MEDS ORDERED: Ondansetron PF 4 MG/2 ML Vial IVP PRN (17:10)
[2022-03-20 17:27] LABS: #Eosinphils 0.1 thou/uL (0.0-0.7); #Lymphocytes 1.2 thou/uL (1.20-3.40); #Monocytes 0.8 thou/uL (0.11-0.59); #Neutrophils 6.6 thou/uL (1.40-6.50); %Basophils 0.2 % (0.0-1.0); %Eosinophils 1.2 % (0.0-10.0); %Lymphocytes 13.7 % (21.0-51.0); %Monocytes 9.2 % (0.0-10.0); %Neutrophils 75.7 % (42.0-75.0); Hemoglobin 12.8 g/dL (14.0-18.0); Mean Corpuscular HGB CONC 32.4 g/dL (32.0-36.0); Mean Corpuscular Hemoglobin 30.5 pg (27.0-31.0); Mean Corpuscular Volume 94.1 fL (78.0-98.0); Platelet Count 189 thou/uL (130-400); Red Blood Cell (RBC) Count 4.19 mill/uL (4.70-6.10); White Blood Cell (WBC) Count 8.8 thou/uL (4.8-10.8)
[2022-03-20] MEDS: HumaLOG 300 UNITS/3 ML VIAL SC PRN ×2 (17:36→20:28)
[2022-03-20 17:50] LABS: ALT (SGPT) 31 U/L (8-55); AST (SGOT) 19 U/L (5-34); Albumin 3.7 g/dL (3.4-4.8); Alkaline Phosphatase 56 U/L (40-110); Anion Gap 13 mmol/L (10-20); BUN (Urea Nitrogen) 30 mg/dL (8.4-25.7); Bilirubin, Total 0.4 mg/dL (0.2-1.2); CRP (Inflammatory) 15.39 mg/dL (= or < 0.5); Calc. Creatinine Clearance 50 mL/min (70-130); Calcium 9.3 mg/dL (7.8-10.44); Carbon Dioxide 23 mmol/L (23-31); Chloride 100 mmol/L (98-107); Globulin 3.6 g/dL (2.4-3.5); Glucose 433 mg/dL (83-110); Potassium 4.7 mmol/L (3.5-5.1); Protein, Total 7.3 g/dL (5.8-8.1); Sodium 131 mmol/L (136-145)
[2022-03-20 18:09] LABS: Hemoglobin A1c 9.5 % (4.0-6.0)
[2022-03-20] MEDS: Lisinopril 10 MG TAB PO SCH (20:27)
[2022-03-20] MEDS: Piperacillin/Tazobactam 3.375 GM in Sodium Chloride 0.9% 100 ML IVPB SCH (20:30)
[2022-03-21] MEDS: Piperacillin/Tazobactam 3.375 GM in Sodium Chloride 0.9% 100 ML IVPB SCH ×3 (05:42→22:56)
[2022-03-21] MEDS: HumaLOG 300 UNITS/3 ML VIAL SC PRN ×4 (05:43→21:15)
[2022-03-21 06:17] LABS: #Eosinphils 0.3 thou/uL (0.0-0.7); #Monocytes 1.3 thou/uL (0.11-0.59); #Neutrophils 7.7 thou/uL (1.40-6.50); %Basophils 0.2 % (0.0-1.0); %Eosinophils 2.3 % (0.0-10.0); %Lymphocytes 17.6 % (21.0-51.0); %Monocytes 11.3 % (0.0-10.0); %Neutrophils 68.6 % (42.0-75.0); Hemoglobin 12.2 g/dL (14.0-18.0); Mean Corpuscular HGB CONC 32.9 g/dL (32.0-36.0); Mean Corpuscular Hemoglobin 30.7 pg (27.0-31.0); Mean Corpuscular Volume 93.4 fL (78.0-98.0); Mean Platelet Volume 6.8 fL (7.4-10.4); Platelet Count 188 thou/uL (130-400); RBC Distribution Width 11.8 % (11.5-14.5); Red Blood Cell (RBC) Count 3.98 mill/uL (4.70-6.10); White Blood Cell (WBC) Count 11.2 thou/uL (4.8-10.8)
[2022-03-21 06:29] LABS: Anion Gap 11 mmol/L (10-20); BUN (Urea Nitrogen) 26 mg/dL (8.4-25.7); Calc. Creatinine Clearance 54 mL/min (70-130); Calcium 9.2 mg/dL (7.8-10.44); Carbon Dioxide 23 mmol/L (23-31); Chloride 102 mmol/L (98-107); Glucose 298 mg/dL (83-110); Sodium 131 mmol/L (136-145)
[2022-03-21] MEDS: Insulin Glargine 30 UNITS/0.3 ML VIAL SC SCH (08:32)
[2022-03-21] MEDS: Lisinopril 10 MG TAB PO SCH ×2 (08:32→21:03)
[2022-03-21] MEDS: Rosuvastatin 10 MG TAB PO SCH (21:03)
[2022-03-22] MEDS: Piperacillin/Tazobactam 3.375 GM in Sodium Chloride 0.9% 100 ML IVPB SCH ×3 (06:07→22:15)
[2022-03-22] MEDS: Metoprolol Tartrate 50 MG TAB PO SCH (06:07)
[2022-03-22] MEDS ORDERED: Lidocaine 1% (PF) 30 ML VIAL ONE (07:39)
[2022-03-22] MEDS ORDERED: Bacitracin Zinc Ointment 30 gm TUBE ONE (07:39)
[2022-03-22] MEDS ORDERED: fentaNYL Citrate/PF 100 MCG/2 ML SYRINGE ONE (08:15)
[2022-03-22] MEDS ORDERED: Lidocaine 1% PF 5 ML VIAL ONE (08:37)
[2022-03-22] MEDS ORDERED: Ondansetron PF 4 MG/2 ML Vial ONE (08:37)
[2022-03-22] MEDS ORDERED: ePHEDrine 50 MG/ML VIAL ONE (08:37)
[2022-03-22] MEDS ORDERED: PROPOFOL 200 MG/20 ML VIAL ONE (08:37)
[2022-03-22] MEDS ORDERED: Neomycin-Polymyxin 1 ML AMP ONE (08:43)
[2022-03-22] MEDS ORDERED: Promethazine HCl 25 MG/ML VIAL IVPB PRN (09:27)
[2022-03-22] MEDS ORDERED: Promethazine HCl 25 MG/ML VIAL IM PRN (09:27)
[2022-03-22] MEDS ORDERED: Ondansetron HCl/PF 4 MG/2 ML Vial IVP PRN (09:27)
[2022-03-22] MEDS: Lisinopril 10 MG TAB PO SCH ×2 (10:30→20:30)
[2022-03-22] MEDS: Insulin Glargine 30 UNITS/0.3 ML VIAL SC SCH ×2 (10:31→20:32)
[2022-03-22] MEDS ORDERED: traMADol HCl 50 MG TAB PO PRN (11:55)
[2022-03-22] MEDS: HumaLOG 300 UNITS/3 ML VIAL SC PRN ×3 (12:04→20:41)
[2022-03-22] MEDS: Rosuvastatin 10 MG TAB PO SCH (20:29)
[2022-03-22] MEDS: HYDROcodone/Acetaminophen 5/325 mg Tablet PO PRN (20:40)
[2022-03-23] MEDS: Piperacillin/Tazobactam 3.375 GM in Sodium Chloride 0.9% 100 ML IVPB SCH ×3 (05:04→20:37)
[2022-03-23] MEDS: HumaLOG 300 UNITS/3 ML VIAL SC PRN ×3 (05:04→17:03)
[2022-03-23] MEDS: HYDROcodone/Acetaminophen 5/325 mg Tablet PO PRN (05:05)
[2022-03-23 06:31] LABS: #Basophils 0.1 thou/uL (0.0-0.2); #Eosinphils 0.5 thou/uL (0.0-0.7); #Lymphocytes 2.1 thou/uL (1.20-3.40); #Monocytes 0.7 thou/uL (0.11-0.59); #Neutrophils 5.6 thou/uL (1.40-6.50); %Basophils 0.7 % (0.0-1.0); %Eosinophils 5.4 % (0.0-10.0); %Monocytes 8.1 % (0.0-10.0); %Neutrophils 62.8 % (42.0-75.0); Hemoglobin 11.3 g/dL (14.0-18.0); Mean Corpuscular HGB CONC 32.3 g/dL (32.0-36.0); Mean Corpuscular Hemoglobin 30.6 pg (27.0-31.0); Mean Corpuscular Volume 94.5 fL (78.0-98.0); Mean Platelet Volume 6.7 fL (7.4-10.4); Platelet Count 211 thou/uL (130-400); RBC Distribution Width 11.9 % (11.5-14.5); Red Blood Cell (RBC) Count 3.68 mill/uL (4.70-6.10); White Blood Cell (WBC) Count 8.9 thou/uL (4.8-10.8)
[2022-03-23 06:49] LABS: Anion Gap 11 mmol/L (10-20); BUN (Urea Nitrogen) 17 mg/dL (8.4-25.7); Calc. Creatinine Clearance 63 mL/min (70-130); Calcium 8.7 mg/dL (7.8-10.44); Carbon Dioxide 23 mmol/L (23-31); Chloride 104 mmol/L (98-107); Glucose 203 mg/dL (83-110); Potassium 4.4 mmol/L (3.5-5.1); Sodium 134 mmol/L (136-145)
[2022-03-23] MEDS: Metoprolol Tartrate 50 MG TAB PO SCH (08:39)
[2022-03-23] MEDS: Lisinopril 10 MG TAB PO SCH ×2 (08:39→20:35)
[2022-03-23] MEDS: Insulin Glargine 30 UNITS/0.3 ML VIAL SC SCH ×2 (08:40→20:35)
[2022-03-23] MEDS: Rosuvastatin 10 MG TAB PO SCH (20:35)
[2022-03-24] MEDS: HYDROcodone/Acetaminophen 5/325 mg Tablet PO PRN (00:28)
[2022-03-24] MEDS: Piperacillin/Tazobactam 3.375 GM in Sodium Chloride 0.9% 100 ML IVPB SCH ×2 (05:04→14:11)
[2022-03-24] MEDS: Lisinopril 10 MG TAB PO SCH (08:28)
[2022-03-24] MEDS: Insulin Glargine 30 UNITS/0.3 ML VIAL SC SCH (08:28)
[2022-03-24] MEDS: Metoprolol Tartrate 50 MG TAB PO SCH (08:28)
[2022-03-24] MEDS: HumaLOG 300 UNITS/3 ML VIAL SC PRN (12:17)
[2022-03-24 18:07] VITALS: BP 177/79; TEMP 98.5
[2022-03-24] MEDS ORDERED: Metoprolol Tartrate 50 MG TAB PO SCH (21:00)
== END 2022-03-24 18:39 | disposition home health service (06) | DRG 617 ==
LOC: T4-A 15:40
PROVIDERS: ADMIT Internal Medicine; ATTEND Internal Medicine
PROC: 0Y6R0Z0 Detachment at Right 2nd Toe, Complete, Open Approach (ICD-10-PCS; principal; 2022-03-22)
DX: E11.69 Type 2 diabetes mellitus with other specified complication (principal); M86.171 Other acute osteomyelitis, right ankle and foot; Z20.822 Contact with and (suspected) exposure to COVID-19; I10 Essential (primary) hypertension; I25.10 Atherosclerotic heart disease of native coronary artery without angina pectoris; E78.5 Hyperlipidemia, unspecified; E21.3 Hyperparathyroidism, unspecified; E11.621 Type 2 diabetes mellitus with foot ulcer; L97.519 Non-pressure chronic ulcer of other part of right foot with unspecified severity; E78.00 Pure hypercholesterolemia, unspecified; E11.40 Type 2 diabetes mellitus with diabetic neuropathy, unspecified; E11.51 Type 2 diabetes mellitus with diabetic peripheral angiopathy without gangrene; N40.0 Benign prostatic hyperplasia without lower urinary tract symptoms; N17.9 Acute kidney failure, unspecified; E11.65 Type 2 diabetes mellitus with hyperglycemia; Z79.899 Other long term (current) drug therapy; Z95.1 Presence of aortocoronary bypass graft; Z79.4 Long term (current) use of insulin; I25.2 Old myocardial infarction; Z86.16 Personal history of COVID-19; Z98.890 Other specified postprocedural states; Z80.9 Family history of malignant neoplasm, unspecified; Z82.49 Family history of ischemic heart disease and other diseases of the circulatory system; Z83.3 Family history of diabetes mellitus
CPT/HCPCS: 36415; 36416; 71046; 80048; 80053; 83036; 83735; 85025; 85652; 86140; 87040; 87070; 87077; 87102; 87186; 87205; 87206; 88305; 88311; 93005; 93010; 93923; C1713; J1815; J2001; J2405; J2543; J2704; J3490; U0003; U0005

== ENCOUNTER 2022-07-28 13:53 | Inpatient (IN) | payer MEDICARE, OTHER ==
[~2022-07-28 13:53] MED LIST: Magnevist 469MG/ML 20 ML VIAL ONE
[2022-07-28 15:38] VITALS: BMI 27.6
[2022-07-28] MEDS ORDERED: Acetaminophen 325 MG TAB PO PRN (15:51)
[2022-07-28] MEDS ORDERED: Piperacillin/Tazobactam 3.375 GM in Sodium Chloride 0.9% 100 ML IVPB SCH ×2 (16:00→20:00)
[2022-07-28] MEDS ORDERED: Dextrose 5% in Water 1,000 ML IV PRN (16:06)
[2022-07-28] MEDS ORDERED: HumaLOG 300 UNITS/3 ML VIAL SC PRN ×2 (16:06)
[2022-07-28] MEDS ORDERED: Dextrose 50% Abboject 50 ML SYRINGE SLOW IVP PRN (16:06)
[2022-07-28 16:41] LABS: #Eosinphils 0.2 thou/uL (0.0-0.7); #Lymphocytes 1.4 thou/uL (1.20-3.40); #Monocytes 0.8 thou/uL (0.11-0.59); #Neutrophils 7.5 thou/uL (1.40-6.50); %Basophils 0.3 % (0.0-1.0); %Eosinophils 1.6 % (0.0-10.0); %Lymphocytes 13.8 % (21.0-51.0); %Neutrophils 76.2 % (42.0-75.0); Hemoglobin 13.3 g/dL (14.0-18.0); Mean Corpuscular HGB CONC 32.7 g/dL (32.0-36.0); Mean Corpuscular Hemoglobin 30.9 pg (27.0-31.0); Mean Corpuscular Volume 94.6 fL (78.0-98.0); Mean Platelet Volume 7.9 fL (7.4-10.4); Platelet Count 137 thou/uL (130-400); RBC Distribution Width 12.6 % (11.5-14.5); White Blood Cell (WBC) Count 9.9 thou/uL (4.8-10.8)
[2022-07-28 17:25] LABS: Anion Gap 14 mmol/L (10-20); BUN (Urea Nitrogen) 23 mg/dL (8.4-25.7); Calc. Creatinine Clearance 59 mL/min (70-130); Calcium 9.2 mg/dL (7.8-10.44); Carbon Dioxide 24 mmol/L (23-31); Chloride 103 mmol/L (98-107); Estimated GFR 58; Glucose 289 mg/dL (83-110); Potassium 4.7 mmol/L (3.5-5.1); Sodium 136 mmol/L (136-145)
[2022-07-28 17:44] LABS: ALT (SGPT) 20 U/L (8-55); AST (SGOT) 16 U/L (5-34); Albumin 4.1 g/dL (3.4-4.8); Alkaline Phosphatase 42 U/L (40-110); Bilirubin, Direct 0.3 mg/dL (0.1-0.3); Bilirubin, Total 0.8 mg/dL (0.2-1.2); Protein, Total 7.1 g/dL (5.8-8.1)
[2022-07-28 17:47] LABS: Magnesium 1.9 mg/dL (1.6-2.6); Phosphorus 2.8 mg/dL (2.3-4.7)
[2022-07-28] MEDS ORDERED: Lisinopril 20 MG TAB PO SCH (21:00)
[2022-07-28] MEDS: Rosuvastatin 20 MG TAB PO SCH (21:48)
[2022-07-28] MEDS: Insulin Glargine 30 UNITS/0.3 ML VIAL SC SCH (21:48)
[2022-07-28] MEDS: Lisinopril 20 MG TAB PO SCH (21:48)
[2022-07-28] MEDS: Piperacillin/Tazobactam 3.375 GM in Sodium Chloride 0.9% 100 ML IVPB SCH (23:57)
[2022-07-29 06:00] LABS: #Eosinphils 0.3 thou/uL (0.0-0.7); #Monocytes 0.8 thou/uL (0.11-0.59); #Neutrophils 5.8 thou/uL (1.40-6.50); %Basophils 0.4 % (0.0-1.0); %Eosinophils 3.8 % (0.0-10.0); %Lymphocytes 22.1 % (21.0-51.0); %Neutrophils 64.7 % (42.0-75.0); Hemoglobin 12.9 g/dL (14.0-18.0); Mean Corpuscular HGB CONC 32.6 g/dL (32.0-36.0); Mean Corpuscular Volume 95.2 fL (78.0-98.0); Mean Platelet Volume 7.8 fL (7.4-10.4); Platelet Count 141 thou/uL (130-400); RBC Distribution Width 12.5 % (11.5-14.5); Red Blood Cell (RBC) Count 4.15 mill/uL (4.70-6.10); White Blood Cell (WBC) Count 8.9 thou/uL (4.8-10.8)
[2022-07-29 06:17] LABS: Anion Gap 10 mmol/L (10-20); BUN (Urea Nitrogen) 19 mg/dL (8.4-25.7); Calc. Creatinine Clearance 64 mL/min (70-130); Calcium 9.5 mg/dL (7.8-10.44); Carbon Dioxide 24 mmol/L (23-31); Chloride 105 mmol/L (98-107); Estimated GFR 65; Glucose 175 mg/dL (83-110); Potassium 4.4 mmol/L (3.5-5.1); Sodium 135 mmol/L (136-145)
[2022-07-29] MEDS: Lisinopril 20 MG TAB PO SCH ×2 (08:33→22:01)
[2022-07-29] MEDS ORDERED: Metoprolol Tartrate 50 MG TAB PO SCH (09:00)
[2022-07-29] MEDS ORDERED: Vancomycin 1 GM in Premix Bag 1 BAG IVPB SCH (09:00)
[2022-07-29 09:10] LABS: Cardiac Risk 3.8 (Less than 4.5)
[2022-07-29] MEDS: Piperacillin/Tazobactam 3.375 GM in Sodium Chloride 0.9% 100 ML IVPB SCH ×2 (09:23→17:57)
[2022-07-29] MEDS: Insulin Glargine 30 UNITS/0.3 ML VIAL SC SCH ×2 (09:32→21:59)
[2022-07-29] MEDS: Aspirin 81 mg Enteric Coated Tablet PO SCH (09:32)
[2022-07-29] MEDS ORDERED: fentaNYL Citrate/PF 100 MCG/2 ML SYRINGE ONE (09:47)
[2022-07-29] MEDS ORDERED: VANCOMYCIN 1.75 GM/500 ML BAG 1.75 GM in Premix Bag 1 BAG IVPB SCH (10:00)
[2022-07-29] MEDS ORDERED: Lidocaine 1% (PF) 30 ML VIAL ONE (10:42)
[2022-07-29] MEDS ORDERED: ePHEDrine 50 MG/ML VIAL ONE (11:43)
[2022-07-29] MEDS ORDERED: PROPOFOL 200 MG/20 ML VIAL ONE (11:43)
[2022-07-29] MEDS ORDERED: Ondansetron PF 4 MG/2 ML Vial ONE (11:43)
[2022-07-29] MEDS ORDERED: Neomycin-Polymyxin 1 ML AMP ONE (11:46)
[2022-07-29] MEDS ORDERED: Ketorolac Tromethamine 30 MG/ML VIAL IVP PRN (12:25)
[2022-07-29] MEDS ORDERED: Ondansetron HCl/PF 4 MG/2 ML Vial IVP PRN (12:25)
[2022-07-29] MEDS ORDERED: Promethazine HCl 25 MG/ML VIAL IM PRN (12:25)
[2022-07-29] MEDS ORDERED: Promethazine HCl 25 MG/ML VIAL IVPB PRN (12:25)
[2022-07-29] MEDS: VANCOMYCIN 1.75 GM/500 ML BAG 1.75 GM in Premix Bag 1 BAG IVPB SCH (13:53)
[2022-07-29] MEDS ORDERED: traMADol HCl 50 MG TAB PO PRN (14:37)
[2022-07-29] MEDS: Rosuvastatin 20 MG TAB PO SCH (22:01)
[2022-07-30] MEDS: Piperacillin/Tazobactam 3.375 GM in Sodium Chloride 0.9% 100 ML IVPB SCH ×3 (01:15→17:43)
[2022-07-30 05:46] LABS: #Eosinphils 0.5 thou/uL (0.0-0.7); #Lymphocytes 1.6 thou/uL (1.20-3.40); #Monocytes 0.6 thou/uL (0.11-0.59); #Neutrophils 4.7 thou/uL (1.40-6.50); %Basophils 0.5 % (0.0-1.0); %Eosinophils 6.9 % (0.0-10.0); %Lymphocytes 21.3 % (21.0-51.0); %Monocytes 8.5 % (0.0-10.0); %Neutrophils 62.7 % (42.0-75.0); Hemoglobin 12.2 g/dL (14.0-18.0); Mean Corpuscular HGB CONC 31.9 g/dL (32.0-36.0); Mean Corpuscular Hemoglobin 30.5 pg (27.0-31.0); Mean Corpuscular Volume 95.4 fL (78.0-98.0); Mean Platelet Volume 7.9 fL (7.4-10.4); Platelet Count 157 thou/uL (130-400); RBC Distribution Width 12.3 % (11.5-14.5); Red Blood Cell (RBC) Count 4.02 mill/uL (4.70-6.10); White Blood Cell (WBC) Count 7.5 thou/uL (4.8-10.8)
[2022-07-30 06:05] LABS: Anion Gap 12 mmol/L (10-20); BUN (Urea Nitrogen) 15 mg/dL (8.4-25.7); Calc. Creatinine Clearance 67 mL/min (70-130); Calcium 9.2 mg/dL (7.8-10.44); Carbon Dioxide 24 mmol/L (23-31); Chloride 108 mmol/L (98-107); Estimated GFR 68; Glucose 108 mg/dL (83-110); Potassium 4.6 mmol/L (3.5-5.1); Sodium 139 mmol/L (136-145)
[2022-07-30] MEDS: Lisinopril 20 MG TAB PO SCH ×2 (09:15→21:15)
[2022-07-30] MEDS: Insulin Glargine 30 UNITS/0.3 ML VIAL SC SCH ×2 (09:15→21:14)
[2022-07-30] MEDS: Aspirin 81 mg Enteric Coated Tablet PO SCH (09:15)
[2022-07-30] MEDS: VANCOMYCIN 1.75 GM/500 ML BAG 1.75 GM in Premix Bag 1 BAG IVPB SCH (15:06)
[2022-07-30] MEDS: Heparin 5,000 UNITS/ML VIAL SC SCH ×2 (15:07→21:15)
[2022-07-30] MEDS: Rosuvastatin 20 MG TAB PO SCH (21:15)
[2022-07-31] MEDS: Piperacillin/Tazobactam 3.375 GM in Sodium Chloride 0.9% 100 ML IVPB SCH ×2 (00:09→09:38)
[2022-07-31 05:59] LABS: #Eosinphils 0.6 thou/uL (0.0-0.7); #Monocytes 0.7 thou/uL (0.11-0.59); #Neutrophils 3.3 thou/uL (1.40-6.50); %Basophils 0.3 % (0.0-1.0); %Eosinophils 9.3 % (0.0-10.0); %Lymphocytes 30.8 % (21.0-51.0); %Monocytes 10.5 % (0.0-10.0); Hemoglobin 12.1 g/dL (14.0-18.0); Mean Corpuscular HGB CONC 32.3 g/dL (32.0-36.0); Mean Corpuscular Hemoglobin 30.4 pg (27.0-31.0); Mean Corpuscular Volume 94.3 fL (78.0-98.0); Mean Platelet Volume 7.2 fL (7.4-10.4); Platelet Count 151 thou/uL (130-400); RBC Distribution Width 12.3 % (11.5-14.5); Red Blood Cell (RBC) Count 3.96 mill/uL (4.70-6.10); White Blood Cell (WBC) Count 6.6 thou/uL (4.8-10.8)
[2022-07-31 06:11] LABS: Phosphorus 3.4 mg/dL (2.3-4.7)
[2022-07-31 06:14] LABS: ALT (SGPT) 48 U/L (8-55); AST (SGOT) 41 U/L (5-34); Albumin 3.8 g/dL (3.4-4.8); Alkaline Phosphatase 48 U/L (40-110); Anion Gap 12 mmol/L (10-20); BUN (Urea Nitrogen) 16 mg/dL (8.4-25.7); Bilirubin, Total 0.5 mg/dL (0.2-1.2); Calc. Creatinine Clearance 65 mL/min (70-130); Calcium 9.2 mg/dL (7.8-10.44); Carbon Dioxide 24 mmol/L (23-31); Chloride 109 mmol/L (98-107); Estimated GFR 66; Globulin 2.4 g/dL (2.4-3.5); Glucose 70 mg/dL (83-110); Potassium 4.2 mmol/L (3.5-5.1); Protein, Total 6.2 g/dL (5.8-8.1); Sodium 141 mmol/L (136-145)
[2022-07-31] MEDS: Aspirin 81 mg Enteric Coated Tablet PO SCH (09:39)
[2022-07-31] MEDS: Heparin 5,000 UNITS/ML VIAL SC SCH ×3 (09:39→20:53)
[2022-07-31] MEDS: Lisinopril 20 MG TAB PO SCH ×2 (09:40→20:53)
[2022-07-31] MEDS: Insulin Glargine 30 UNITS/0.3 ML VIAL SC SCH ×2 (09:40→20:50)
[2022-07-31 13:39] LABS: Vancomycin, Trough 7.6 ug/mL
[2022-07-31] MEDS ORDERED: VANCOMYCIN 1.75 GM/500 ML BAG 1.75 GM in Premix Bag 1 BAG IVPB SCH (14:00)
[2022-07-31] MEDS: VANCOMYCIN 1.25 GM/250 ML BAG 1.25 GM in Premix Bag 1 BAG IVPB SCH (14:15)
[2022-07-31] MEDS: Rosuvastatin 20 MG TAB PO SCH (20:53)
[2022-08-01] MEDS: VANCOMYCIN 1.25 GM/250 ML BAG 1.25 GM in Premix Bag 1 BAG IVPB SCH ×2 (01:51→15:31)
[2022-08-01 05:59] LABS: Phosphorus 3.9 mg/dL (2.3-4.7)
[2022-08-01 06:01] LABS: #Eosinphils 0.6 thou/uL (0.0-0.7); #Lymphocytes 1.6 thou/uL (1.20-3.40); #Monocytes 0.6 thou/uL (0.11-0.59); #Neutrophils 3.1 thou/uL (1.40-6.50); %Basophils 0.6 % (0.0-1.0); %Eosinophils 9.5 % (0.0-10.0); %Lymphocytes 27.5 % (21.0-51.0); %Monocytes 9.5 % (0.0-10.0); %Neutrophils 52.9 % (42.0-75.0); Hemoglobin 12.8 g/dL (14.0-18.0); Mean Corpuscular HGB CONC 32.4 g/dL (32.0-36.0); Mean Corpuscular Hemoglobin 30.5 pg (27.0-31.0); Mean Corpuscular Volume 94.1 fL (78.0-98.0); Mean Platelet Volume 7.6 fL (7.4-10.4); Platelet Count 177 thou/uL (130-400); RBC Distribution Width 12.2 % (11.5-14.5); Red Blood Cell (RBC) Count 4.22 mill/uL (4.70-6.10); White Blood Cell (WBC) Count 5.8 thou/uL (4.8-10.8)
[2022-08-01 06:02] LABS: ALT (SGPT) 44 U/L (8-55); AST (SGOT) 31 U/L (5-34); Albumin 3.8 g/dL (3.4-4.8); Alkaline Phosphatase 48 U/L (40-110); Anion Gap 12 mmol/L (10-20); BUN (Urea Nitrogen) 17 mg/dL (8.4-25.7); Bilirubin, Total 0.4 mg/dL (0.2-1.2); Calc. Creatinine Clearance 71 mL/min (70-130); Calcium 9.9 mg/dL (7.8-10.44); Carbon Dioxide 23 mmol/L (23-31); Chloride 109 mmol/L (98-107); Estimated GFR 74; Globulin 3.1 g/dL (2.4-3.5); Glucose 74 mg/dL (83-110); Protein, Total 6.9 g/dL (5.8-8.1); Sodium 140 mmol/L (136-145)
[2022-08-01] MEDS: Lisinopril 20 MG TAB PO SCH (08:38)
[2022-08-01] MEDS: Heparin 5,000 UNITS/ML VIAL SC SCH ×2 (08:38→16:05)
[2022-08-01] MEDS: Aspirin 81 mg Enteric Coated Tablet PO SCH (08:39)
[2022-08-01] MEDS: Insulin Glargine 30 UNITS/0.3 ML VIAL SC SCH (08:39)
[2022-08-01] MEDS ORDERED: Saccharomyces boulardii 250 MG CAP PO SCH (09:00)
[2022-08-01] MEDS ORDERED: Amlodipine 5 MG TAB PO SCH (09:00)
[2022-08-01] MEDS ORDERED: Hydrochlorothiazide 25 MG TAB PO SCH (10:00)
[2022-08-01 12:30] VITALS: BP 156/66; TEMP 97.2
[2022-08-01] MEDS ORDERED: Vancomycin HCl 125 MG/5 ML (BATCHED) UDCUP PO SCH ×2 (16:15→23:59)
[2022-08-01] MEDS ORDERED: Lisinopril 20 MG TAB PO SCH (21:00)
[2022-08-02] MEDS ORDERED: Amlodipine 10 MG TAB PO SCH (09:00)
[2022-08-02] MEDS ORDERED: Lisinopril/Hydrochlorothiazide 20 mg/12.5 mg Tablet PO SCH (09:00)
[2022-08-03 19:13] LABS: Fungus Stain Final report (.)
== END 2022-08-01 18:00 | disposition home health service (06) | DRG 617 ==
LOC: SJJU 14:52
PROVIDERS: ADMIT Internal Medicine; ATTEND Internal Medicine
PROC: 0Y6T0Z1 Detachment at Right 3rd Toe, High, Open Approach (ICD-10-PCS; principal; 2022-07-29)
DX: E11.69 Type 2 diabetes mellitus with other specified complication (principal); M86.8X7 Other osteomyelitis, ankle and foot; Z20.822 Contact with and (suspected) exposure to COVID-19; L03.031 Cellulitis of right toe; I25.10 Atherosclerotic heart disease of native coronary artery without angina pectoris; I10 Essential (primary) hypertension; E78.00 Pure hypercholesterolemia, unspecified; E21.3 Hyperparathyroidism, unspecified; E11.51 Type 2 diabetes mellitus with diabetic peripheral angiopathy without gangrene; Z95.1 Presence of aortocoronary bypass graft; Z79.899 Other long term (current) drug therapy; Z79.4 Long term (current) use of insulin; Z79.82 Long term (current) use of aspirin; Z89.421 Acquired absence of other right toe(s); Z83.3 Family history of diabetes mellitus; I25.2 Old myocardial infarction; Z86.16 Personal history of COVID-19
CPT/HCPCS: 36415; 36416; 80048; 80053; 80061; 80076; 80202; 83036; 83735; 84100; 85025; 85652; 87040; 87070; 87077; 87102; 87116; 87186; 87205; 87206; 87324; 87449; 88305; 88311; 93005; 93010; 97139; A9579; C1713; J1644; J1815; J2001; J2405; J2543; J2704; J3370; J3490; U0003; U0005

== ENCOUNTER 2022-12-17 09:04 | Outpatient (CLI) | payer MEDICARE, OTHER | END 2022-12-17 09:05 | disposition home or self-care (01) | LOC: SCSMRI 09:04 | PROVIDERS: ATTEND Podiatrist | DX: M86.171 Other acute osteomyelitis, right ankle and foot (principal); E11.59 Type 2 diabetes mellitus with other circulatory complications; E11.40 Type 2 diabetes mellitus with diabetic neuropathy, unspecified; M86.8X7 Other osteomyelitis, ankle and foot | CPT/HCPCS: 82565 ==

== ENCOUNTER 2024-09-08 08:51 | Outpatient (CLI) | payer MEDICARE, OTHER | END 2024-09-08 08:52 | disposition home or self-care (01) | LOC: CT 08:51 | PROVIDERS: ATTEND Student in an Organized Health Care Education/Training Program | DX: I65.21 Occlusion and stenosis of right carotid artery (principal); I65.01 Occlusion and stenosis of right vertebral artery; I77.1 Stricture of artery | CPT/HCPCS: 36415; 70498; 82565 ==